=== PATIENT | female | born 1990 | race Caucasian/White ===

== ENCOUNTER 2016-11-05 18:27 | Emergency (ER) | payer SELFPAY ==
[2016-11-05 18:39] VITALS: BP 129/61
== END 2016-11-05 19:16 | disposition left against medical advice (07) ==
LOC: ED 18:27
DX: R00.2 Palpitations (principal); Z53.21 Procedure and treatment not carried out due to patient leaving prior to being seen by health care provider
CPT/HCPCS: 93005

== ENCOUNTER 2017-03-07 17:40 | Emergency (ER) | payer BC ==
[2017-03-07 18:21] VITALS: BP 110/66
--- NOTE | 2017-03-07 19:06 | UC ---
Abdominal Pain Female HPI - HPI Summary HPI Summary: PT HAS HAD ABDOMINAL PAIN AND INTERMITTENT N/V/D FOR YEARS. USED TO TAKE PRILOSEC WHICH HELPED BUT RAN OUT A MONTH AGO. PAIN HAS BEEN CONSTANT FOR THE PAST WEEK. PT IS TEARFUL. WENT TO GI SEVERAL YEARS AGO AND NOTHING WAS FOUND. NO FEVER. - History of Current Complaint Chief Complaint: UCAbdominalPain Stated Complaint: ABDOMINAL PAIN Time Seen by Provider: 03/07/17 18:48 Hx Obtained From: Patient Hx Last Menstrual Period: 02/24/17 Onset/Duration: Gradual Onset, Lasting Weeks, Still Present Timing: Constant Severity Initially: Moderate Severity Currently: Moderate Pain Intensity: 7 Pain Scale Used: 0-10 Numeric Location: Diffuse Radiates: No Character: Burning Aggravating Factor(s): Food Alleviating Factor(s): Nothing Associated Signs and Symptoms: Positive: Nausea, Vomiting, Diarrhea Allergies/Adverse Reactions: Allergies Allergy/AdvReac Type Severity Reaction Status Date / Time No Known Allergies Allergy Verified 03/07/17 18:21 Home Medications: Home Medications Calcium Carbonate CHEW TAB* [Tums*] PRN 03/07/17 [History] PMH/Surg Hx/FS Hx/Imm Hx - Additional Past Medical History Additional PMH: EATING DISORDER - RECOVERED - Surgical History Surgical History: Yes Surgery Procedure, Year, and Place: wisdom teeth - Family History Known Family History: Positive: Hypertension - Social History Alcohol Use: Rare Substance Use Type: Marijuana Substance Use Comment - Amount & Last Used: regularly Smoking Status (MU): Former Smoker Amount Used/How Often: 3/4 ppd Length of Time of Smoking/Using Tobacco: 10 years Have You Smoked in the Last Year: Yes Household Exposure Type: Cigarettes Review of Systems Constitutional: Negative Respiratory: Negative Cardiovascular: Negative Gastrointestinal: Abdominal Pain, Vomiting, Diarrhea, Nausea All Other Systems Reviewed And Are Negative: Yes Physical Exam Triage Information Reviewed: Yes Appearance: Well-Appearing, No Pain Distress, Well-Nourished, Other: - PT TEARFUL Vital Signs: Initial Vital Signs Temp 97.7 F 03/07/17 18:16 Pulse 79 03/07/17 18:16 Resp 16 03/07/17 18:16 BP 110/66 03/07/17 18:16 Pulse Ox 100 03/07/17 18:16 Vital Signs Reviewed: Yes Eyes: Positive: Conjunctiva Clear ENT: Positive: Hearing grossly normal Neck: Positive: Supple Respiratory Exam: Normal Cardiovascular Exam: Normal Abdomen Description: Positive: Soft, Other: - DIFFUSELY TENDER. NO REBOUND OR RIGIDITY. Negative: CVA Tenderness (R), CVA Tenderness (L), Distended, Guarding Bowel Sounds: Positive: Present Musculoskeletal: Positive: No Edema Neurological: Positive: Alert Psychological: Positive: Age Appropriate Behavior Skin: Negative: rashes Re-Evaluation - Re-Evaluation First Eval Re-Evaluation Time: 19:50 - PT FEELS BETTER AFTE GI COCKTAIL AND OMEPRAZOLE Change: Improved Abd Pain Female Course/Dx - Course Course Of Treatment: SX MAY BE DUE TO IBS VS. GASTRITIS VS. REFLUX VS. ANXIETY. REFERRED TO GI FOR FURTHER EVALUATION. PPI DAILY. WATCH DIET. - Differential Dx/Diagnosis Provider Diagnoses: GASTRITIS Discharge - Discharge Plan Condition: Stable Disposition: HOME Prescriptions: Omeprazole 40 mg PO DAILY #30 cap Patient Education Materials: Gastritis (ED), Abdominal Pain (ED) Forms: *Work Release Referrals: Cristhian Turcios, [employer] [Primary Care Provider] - If Needed Additional Instructions: TAKE THE REFLUX MEDICINE IN THE MORNING (IDEALLY AT LEAST 30 MINUTES BEFORE YOU EAT). EAT SLOWLY. STAY UPRIGHT AT LEAST 30 MINUTES AFTER EATING. EAT SMALLER, MORE FREQUENT MEALS OPPOSED TO LARGE INFREQUENT MEALS. AVOID POSSIBLE TRIGGER FOODS - GREASY, SPICY, ACIDIC FOODS. CAFFEINE, ALCOHOL. FOLLOW-UP WITH [facility] Address: [address] [place] [address] CALL THE NUMBER BELOW FOR ASSISTANCE IN ESTABLISHING WITH A PCP An additional resource available to assist in finding the appropriate physician for your health care needs is the [facility] ([facility]). You may contact them by calling [phone].
[2017-03-07] MEDS ORDERED: Al Hydrox/Mg Hydrox/Simet LIQ* 30 ML UDC PO ONE (19:23)
[2017-03-07] MEDS ORDERED: Lidocaine 2% VISCOUS* 15 ML UDC PO ONE (19:23)
[2017-03-07] MEDS ORDERED: Omeprazole CAP* 20 MG PO ONE (19:25)
== END 2017-03-07 19:56 | disposition home or self-care (01) ==
LOC: UCEAST 17:40
DX: K29.70 Gastritis, unspecified, without bleeding (principal); F12.90 Cannabis use, unspecified, uncomplicated; Z87.891 Personal history of nicotine dependence
CPT/HCPCS: 99212; A9270-GY; G0463

== ENCOUNTER 2018-02-13 01:19 | Emergency (ER) | payer BC ==
[2018-02-13] MEDS ORDERED: Ondansetron ODT TAB* 4 MG PO ONE (01:59)
[2018-02-13] MEDS ORDERED: NS 0.9% 1000 ML* 1,000 ML IV ONE (01:59)
[2018-02-13] MEDS ORDERED: Morphine VIAL* 10 MG/ML 1 ML VIAL IV ONE ×2 (01:59→03:10)
--- NOTE | 2018-02-13 02:05 | ED ---
Abdominal Pain/Female <Navin Ochoa - Last Filed: 02/13/18 04:51> - HPI Summary HPI Summary: Complains of RLQ pain, N/V/D, clamminess, increased urinary frequency starting today. Just finished menses, states unusual vaginal discharge with menses. History of intermittent N/V, ovarian cysts, occasional diarrhea. Abdominal pain described as sharp, started as intermittent but has become constant, worse with movement/coughing. Denies cough, sore throat, CP, SOB, vaginal bleeding or pain, pain with urination. Medical history is ovarian cysts, intermittent N/ V, occasional diarrhea. Abdominal/pelvic surgical history is none. 2 prior CTs ab/pel here in past 2 years for right lower quadrant pain negative for appendicitis - History of Current Complaint Hx Obtained From: Patient, Family/Nailhead Puncher Hx Last Menstrual Period: 02/24/17 Pain Intensity: 6 <Humphrey Rockwell - Last Filed: 02/14/18 02:31> - History of Current Complaint Chief Complaint: EDAbdPain Stated Complaint: ABD PAIN Time Seen by Provider: 02/13/18 01:40 Allergies/Adverse Reactions: Allergies Allergy/AdvReac Type Severity Reaction Status Date / Time No Known Allergies Allergy Verified 03/07/17 18:21 PMH/Surg Hx/FS Hx/Imm Hx Endocrine/Hematology History: Denies: Hx Diabetes, Hx Thyroid Disease Cardiovascular History: Denies: Hx Congestive Heart Failure, Hx Hypertension Respiratory History: Reports: Hx Asthma - On meds Denies: Hx Chronic Obstructive Pulmonary Disease (COPD) GI History: Denies: Hx Ulcer History: Denies: Hx Dialysis, Hx Renal Disease Psychiatric History: Reports: Hx Anxiety - Surgical History Surgery Procedure, Year, and Place: wisdom teeth - Immunization History Date of Tetanus Vaccine: UTD Date of Influenza Vaccine: NONE Infectious Disease History: No Infectious Disease History: Denies: Hx Clostridium Difficile, Hx Hepatitis, Hx Human Immunodeficiency Virus (HIV), Hx of Known/Suspected MRSA, Hx Shingles, Hx Tuberculosis, Traveled Outside the [place] in Last 30 Days - Family History Known Family History: Positive: None, Hypertension - Social History Alcohol Use: Rare Substance Use Type: Reports: Marijuana Substance Use Comment - Amount & Last Used: regularly Smoking Status (MU): Former Smoker Amount Used/How Often: 3/4 ppd Length of Time of Smoking/Using Tobacco: 10 years Have You Smoked in the Last Year: Yes <Humphrey Rockwell - Last Filed: 02/14/18 02:31> Review of Systems Positive: Other - clammy Eyes: Negative ENT: Negative Cardiovascular: Negative Respiratory: Negative Positive: Abdominal Pain, Vomiting, Diarrhea, Nausea Positive: frequency Musculoskeletal: Negative Skin: Negative Neurological: Negative Psychological: Normal All Other Systems Reviewed And Are Negative: Yes <Humphrey Rockwell - Last Filed: 02/14/18 02:31> Physical Exam Vital Signs On Initial Exam: Initial Vitals Temp Pulse Resp BP Pulse Ox 36.8 C 89 16 127/77 99 02/13/18 01:22 02/13/18 01:22 02/13/18 01:22 02/13/18 01:22 02/13/18 01:22 <DonNavin - Last Filed: 02/13/18 04:51> - Summary Physical Exam Summary: Tender to palpation along the lower abdomen with right lower quadrant being the most tender. Triage Information Reviewed: Yes Vital Signs On Initial Exam: Initial Vitals Temp Pulse Resp BP Pulse Ox 98.2 F 89 16 127/77 99 02/13/18 01:22 02/13/18 01:22 02/13/18 01:22 02/13/18 01:22 02/13/18 01:22 Vital Signs Reviewed: Yes Appearance: Positive: Well-Appearing Skin: Positive: Warm Head/Face: Positive: Normal Head/Face Inspection Eyes: Positive: Normal Neck: Positive: Supple Respiratory/Lung Sounds: Positive: Clear to Auscultation Cardiovascular: Positive: Normal Abdomen Description: Positive: McBurney's Point Tenderness Pelvic Exam: Positive: External Exam Normal, No Cerv. Motion Tender, Tender Adnexa - rt side tenderness. Negative: No Masses, Active Bleeding, Blood, Cervicitis, Discharge, Lesions, Mass, Tender w/ Cervical Motion, Tender Uterus, Ulcers Musculoskeletal: Positive: Normal Neurological: Positive: Normal Psychiatric: Positive: Normal AVPU Assessment: Alert - [place] Coma Scale Best Eye Response: 4 - Spontaneous Best Motor Response: 6 - Obeys Commands Best Verbal Response: 5 - Oriented Coma Scale Total: 15 <Humphrey Rockwell - Last Filed: 02/14/18 02:31> Diagnostics - Vital Signs Vital Signs Temp Pulse Resp BP Pulse Ox 02/13/18 04:33 52 100/73 96 02/13/18 04:10 16 02/13/18 04:09 58 107/59 99 02/13/18 04:00 52 98 02/13/18 03:10 49 108/61 98 02/13/18 03:00 74 100 02/13/18 02:33 68 104/68 99 02/13/18 02:28 16 02/13/18 01:22 36.8 C 89 16 127/77 99 - Laboratory Lab Results: Lab Results 02/13/18 02/13/18 02/13/18 Range/Units 03:11 03:11 03:11 WBC 8.3 (3.5-10.8) 10^3/ul RBC 4.74 (4.0-5.4) 10^6/ul Hgb 13.7 (12.0-16.0) g/dl Hct 40 (35-47) % MCV 85 (80-97) fL MCH 29 (27-31) pg MCHC 34 (31-36) g/dl RDW 13 (10.5-15) % Plt Count 231 (150-450) 10^3/ul MPV 8.5 (7.4-10.4) um3 Neut % (Auto) 47.6 (38-83) % Lymph % (Auto) 44.7 (25-47) % [place] % (Auto) 6.1 (0-7) % Eos % (Auto) 0.6 (0-6) % Baso % (Auto) 1.0 (0-2) % Absolute Neuts (auto) 3.9 (1.5-7.7) 10^3/ul Absolute Lymphs (auto) 3.7 (1.0-4.8) 10^3/ul Absolute Monos (auto) 0.5 (0-0.8) 10^3/ul Absolute Eos (auto) 0 (0-0.6) 10^3/ul Absolute Basos (auto) 0.1 (0-0.2) 10^3/ul Absolute Nucleated RBC 0 10^3/ul Nucleated RBC % 0.1 Sodium 140 (139-145) mmol/L Potassium 3.3 L (3.5-5.0) mmol/L Chloride 104 (101-111) mmol/L Carbon Dioxide 27 (22-32) mmol/L Anion Gap 9 (2-11) mmol/L BUN 9 (6-24) mg/dL Creatinine 0.69 (0.51-0.95) mg/dL Est GFR ( Amer) 133.3 (>60) Est GFR (Non-Af Amer) 103.7 (>60) BUN/Creatinine Ratio 13.0 (8-20) Glucose 83 (70-100) mg/dL Lactic Acid (0.5-2.0) mmol/L Calcium 9.4 (8.6-10.3) mg/dL Total Bilirubin 0.40 (0.2-1.0) mg/dL AST 11 L (13-39) U/L ALT 8 (7-52) U/L Alkaline Phosphatase 43 (34-104) U/L C-Reactive Protein < 1.00 (< 5.00) mg/L Total Protein 6.5 (6.4-8.9) g/dL Albumin 4.1 (3.2-5.2) g/dL Globulin 2.4 (2-4) g/dL Albumin/Globulin Ratio 1.7 (1-3) Lipase 18 (11.0-82.0) U/L Beta HCG, Quant < 0.60 mIU/mL Urine Color Yellow Urine Appearance Cloudy Urine pH 6.0 (5-9) Ur Specific [place] 1.015 (1.010-1.030) Urine Protein Negative (Negative) Urine Ketones Negative (Negative) Urine Blood 2+ A (Negative) Urine Nitrate Negative (Negative) Urine Bilirubin Negative (Negative) Urine Urobilinogen Negative (Negative) Ur Leukocyte Esterase Trace A (Negative) Urine WBC (Auto) 1+(6-10/hpf) A (Absent) Urine RBC (Auto) 1+(3-5/hpf) A (Absent) Ur Squamous Epith Cells Present A (Absent) Urine Bacteria Absent (Absent) Urine Glucose Negative (Negative) 02/13/18 Range/Units 03:11 WBC (3.5-10.8) 10^3/ul RBC (4.0-5.4) 10^6/ul Hgb (12.0-16.0) g/dl Hct (35-47) % MCV (80-97) fL MCH (27-31) pg MCHC (31-36) g/dl RDW (10.5-15) % Plt Count (150-450) 10^3/ul MPV (7.4-10.4) um3 Neut % (Auto) (38-83) % Lymph % (Auto) (25-47) % [place] % (Auto) (0-7) % Eos % (Auto) (0-6) % Baso % (Auto) (0-2) % Absolute Neuts (auto) (1.5-7.7) 10^3/ul Absolute Lymphs (auto) (1.0-4.8) 10^3/ul Absolute Monos (auto) (0-0.8) 10^3/ul Absolute Eos (auto) (0-0.6) 10^3/ul Absolute Basos (auto) (0-0.2) 10^3/ul Absolute Nucleated RBC 10^3/ul Nucleated RBC % Sodium (139-145) mmol/L Potassium (3.5-5.0) mmol/L Chloride (101-111) mmol/L Carbon Dioxide (22-32) mmol/L Anion Gap (2-11) mmol/L BUN (6-24) mg/dL Creatinine (0.51-0.95) mg/dL Est GFR ( Amer) (>60) Est GFR (Non-Af Amer) (>60) BUN/Creatinine Ratio (8-20) Glucose (70-100) mg/dL Lactic Acid 1.1 (0.5-2.0) mmol/L Calcium (8.6-10.3) mg/dL Total Bilirubin (0.2-1.0) mg/dL AST (13-39) U/L ALT (7-52) U/L Alkaline Phosphatase (34-104) U/L C-Reactive Protein (< 5.00) mg/L Total Protein (6.4-8.9) g/dL Albumin (3.2-5.2) g/dL Globulin (2-4) g/dL Albumin/Globulin Ratio (1-3) Lipase (11.0-82.0) U/L Beta HCG, Quant mIU/mL Urine Color Urine Appearance Urine pH (5-9) Ur Specific [place] (1.010-1.030) Urine Protein (Negative) Urine Ketones (Negative) Urine Blood (Negative) Urine Nitrate (Negative) Urine Bilirubin (Negative) Urine Urobilinogen (Negative) Ur Leukocyte Esterase (Negative) Urine WBC (Auto) (Absent) Urine RBC (Auto) (Absent) Ur Squamous Epith Cells (Absent) Urine Bacteria (Absent) Urine Glucose (Negative) Result Diagrams: 02/13/18 03:11 02/13/18 03:11 Lab Statement: Any lab studies that have been ordered have been reviewed, and results considered in the medical decision making process. <Navin Ochoa - Last Filed: 02/13/18 04:51> - Vital Signs Vital Signs Temp Pulse Resp BP Pulse Ox 02/13/18 01:22 98.2 F 89 16 127/77 99 - Laboratory Result Diagrams: 02/13/18 03:11 02/13/18 03:11 Lab Statement: Any lab studies that have been ordered have been reviewed, and results considered in the medical decision making process. - CT ab/pel CT Interpretation: Positive (See Comments) - right ovarian cyst. Appendix negative CT Interpretation Completed By: Radiologist <Humphrey Rockwell - Last Filed: 02/14/18 02:31> Abdominal Pain Fem Course/Dx <Navin Ochoa - Last Filed: 02/13/18 04:51> - Course Course Of Treatment: Complains of RLQ pain, N/V/D, clamminess, increased urinary frequency starting today. Just finished menses, states unusual vaginal discharge with menses. History of intermittent N/V, ovarian cysts, occasional diarrhea. Abdominal pain described as sharp, started as intermittent but has become constant, worse with movement/coughing. Denies cough, sore throat, CP, SOB, vaginal bleeding or pain, pain with urination. Medical history is ovarian cysts, intermittent N/V, occasional diarrhea. Abdominal/pelvic surgical history is none. 2 prior CTs ab/pel here in past 2 years for right lower quadrant pain negative for appendicitis. Tender to palpation along the lower abdomen with right lower quadrant being the most tender. Pelvic exam remarkable only for right adnexa tenderness. No CMT. Labs unremarkable. Imaging remarkable for ovarian cyst. Vital signs within normal limits. Rx for naproxen <Humphrey Rockwell - Last Filed: 02/14/18 02:31> - Diagnoses Provider Diagnoses: Ovarian cyst Discharge <Navin Ochoa - Last Filed: 02/13/18 04:51> - Sign-Out/Discharge Documenting (check all that apply): Sign-Out Patient Signing out patient TO: Navin Ochoa - 03:15 - Billing Disposition and Condition Condition: GOOD Disposition: HOME <Humphrey Rockwell - Last Filed: 02/14/18 02:31> - Discharge Plan Condition: Good Disposition: HOME Prescriptions: Naproxen [Naprosyn 500 mg tab] 500 mg PO BID PRN #15 tablet PRN Reason: Pain Patient Education Materials: Ovarian Cyst (ED) Referrals: Cristhian Turcios [employer] [Primary Care Provider] -
[2018-02-13] MEDS ORDERED: Morphine VIAL* 4 MG/ML VIAL (1 ml vial) IV ONE ×3 (02:25→04:02)
[2018-02-13] MEDS ORDERED: Azithromycin TAB* 250 MG PO ONE (03:08)
[2018-02-13] MEDS ORDERED: cefTRIAXone VIAL(*) 250 MG VIAL IM ONE (03:08)
[2018-02-13] MEDS ORDERED: Lidocaine 1%* 5 ML VIAL ONE (03:15)
[2018-02-13 03:21] LABS: ABS Basophils 0.1 10^3/ul (0-0.2); ABS Eosinophils 0 10^3/ul (0-0.6); ABS Lymphocytes 3.7 10^3/ul (1.0-4.8); ABS Monocytes 0.5 10^3/ul (0-0.8); ABS Neutrophils 3.9 10^3/ul (1.5-7.7); ABS Nucleated RBC 0 10^3/ul; Eosinophil % 0.6 % (0-6); Hematocrit 40 % (35-47); Hemoglobin 13.7 g/dl (12.0-16.0); Lymphocyte % 44.7 % (25-47); Mean Corpuscular HGB Conc 34 g/dl (31-36); Mean Corpuscular Hemoglobin 29 pg (27-31); Mean Corpuscular Volume 85 fL (80-97); Mean Platelet Volume 8.5 um3 (7.4-10.4); Nucleated Red Blood Cells % 0.1; Platelet Count 231 10^3/ul (150-450); Red Blood Count 4.74 10^6/ul (4.0-5.4); Red Cell Distribution Width 13 % (10.5-15); White Blood Count 8.3 10^3/ul (3.5-10.8)
[2018-02-13 03:26] LABS: Urine Appearance Cloudy; Urine Blood 2+ (Negative); Urine Color Yellow; Urine Ketones Negative (Negative); Urine Protein Negative (Negative); Urine Specific Gravity 1.015 (1.010-1.030); Urine Urobilinogen Negative (Negative)
[2018-02-13 03:39] LABS: EGFR Non-African American 103.7 (>60)
[2018-02-13] MEDS ORDERED: Iohexol 300* (CONTRAST) 10 ML SDV IV ONE (04:39)
[2018-02-13 06:59] VITALS: BP 120/65
--- NOTE | 2018-02-13 10:27 | RAD ---
INDICATION: RIGHT lower quadrant pain, nausea, vomiting. COMPARISON: May 08, 2016 TECHNIQUE: Multidetector CT images were obtained from the lung bases to the ischial tuberosities with 81 mL Omnipaque 300 IV and oral contrast. Multiplanar reformation. REPORT: Minimal dependent atelectasis at the lung bases. Relative hypodensity of the liver likely reflects early stage of contrast enhancement. Suggestion of variant Neva lobe accounting for mild cephalocaudal prominence of the liver without change. No suspicious abnormality of the liver. No CT abnormality of the gallbladder, pancreas, spleen. Small splenule at the splenic hilum. Negative for CT abnormality of the upper GI, small bowel, medially extending appendix, or colon. Trace physiologic range volume of free fluid in the cul-de-sac. Negative for free air or hernias. Normal adrenal glands. Unremarkable kidneys with symmetric nephrograms and pyelograms. Unremarkable nondilated ureters and urinary bladder. Unremarkable anteverted uterus and LEFT adnexal region. 6.9 x 5.0 x 4.7 cm well-circumscribed RIGHT ovarian or paraovarian lesion measures mildly increased in density relative to water and demonstrates interval increase in size compared to thousand 16 exam. Negative for lymphadenopathy. Physiologic distention of the IVC. Negative for suspicious osseous lesions. Unchanged 17 degrees Barrientos angle dextroscoliosis measured between T12 and L5. IMPRESSION: 1. Normal appendix documented. 2. Interval enlargement of 6.9 x 5.0 x 4.7 cm denser than water lesion of the RIGHT ovary or paraovarian region compared with the May 08, 2016 CT. Correlate with clinical assessment and consider pelvic ultrasound for further evaluation.
== END 2018-02-13 07:02 | disposition home or self-care (01) ==
LOC: ED 01:19
DX: N83.201 Unspecified ovarian cyst, right side (principal); Z87.891 Personal history of nicotine dependence
CPT/HCPCS: 36415; 74177; 80053; 81003; 81015; 83605; 83690; 84702; 85025; 86140; 87086; 87480; 87491; 87510; 87591; 87661; 96361; 96372; 96374; 96376; 99284; A9270-GY; J0696; J2270; Q9967

== ENCOUNTER 2018-09-22 14:21 | Emergency (ER) | payer BC, MEDICAID ==
[2018-09-22] MEDS ORDERED: Ketorolac INJ* 30 MG/ML 1 ML VIAL IV PUSH ONE ×2 (14:52→17:16)
[2018-09-22 16:31] LABS: ABS Basophils 0.1 10^3/ul (0-0.2); ABS Eosinophils 0 10^3/ul (0-0.6); ABS Lymphocytes 2.4 10^3/ul (1.0-4.8); ABS Monocytes 0.4 10^3/ul (0-0.8); ABS Neutrophils 4.5 10^3/ul (1.5-7.7); ABS Nucleated RBC 0 10^3/ul; Eosinophil % 0.3 %; Hematocrit 43 % (35-47); Hemoglobin 14.8 g/dl (12.0-16.0); Lymphocyte % 32.3 %; Mean Corpuscular HGB Conc 34 g/dl (31-36); Mean Corpuscular Hemoglobin 29 pg (27-31); Mean Corpuscular Volume 86 fL (80-97); Mean Platelet Volume 7.8 fL (7.4-10.4); Nucleated Red Blood Cells % 0; Platelet Count 282 10^3/ul (150-450); Red Blood Count 5.03 10^6/ul (4.00-5.40); Red Cell Distribution Width 13 % (10.5-15); White Blood Count 7.4 10^3/ul (3.5-10.8)
[2018-09-22 17:06] LABS: ALT 8 U/L (7-52); AST 12 U/L (13-39); Albumin 4.5 g/dL (3.2-5.2); Alkaline Phosphatase 42 U/L (34-104); Anion Gap 6 mmol/L (2-11); BUN/Creatinine Ratio 13.9 (8-20); Blood Urea Nitrogen 10 mg/dL (6-24); C Reactive Protein 1.58 mg/L (<8.01); CO2 Carbon Dioxide 28 mmol/L (22-32); Calcium 9.7 mg/dL (8.6-10.3); Chloride 105 mmol/L (101-111); EGFR Non-African American 97.9 (>60); Globulin 2.2 g/dL (2-4); Glucose 99 mg/dL (70-100); Potassium 3.9 mmol/L (3.5-5.0); Sodium 139 mmol/L (135-145); Total Protein 6.7 g/dL (6.4-8.9)
[2018-09-22 17:11] LABS: HCG Pregnancy < 0.60 mIU/mL
--- NOTE | 2018-09-22 17:15 | ED ---
Abdominal Pain/Female - HPI Summary HPI Summary: A 28 y/o female presents to [facility] with a chief complaint of constant stabbing constant LLQ abdominal pain since 09/21/18. 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 She rates her pain as an 8/10. She has a Hx of ovarian cysts. She admits to some dysuria, fevers, shaking and chills. However, she did not measure her fever with a thermometer. She reports not being sexually active in months. [facility]. She denies a Hx of kidney stones. She denies smoking or EtOH use. She denies an abdominal SHx. - History of Current Complaint Chief Complaint: EDAbdPain Stated Complaint: ABD PAIN Time Seen by Provider: 09/22/18 17:06 Hx Obtained From: Patient Hx Last Menstrual Period: 02/24/17 Onset/Duration: Gradual Onset, Lasting Weeks, Still Present Timing: Hours Severity Initially: Severe Severity Currently: Severe Pain Intensity: 8 Pain Scale Used: 0-10 Numeric Location: Discrete At: LLQ Radiates: No Character: Other: - stabbing Aggravating Factor(s): Nothing Alleviating Factor(s): Nothing Associated Signs and Symptoms: Positive: Fever, Urinary Symptoms - dysuria. Negative: Back Pain Allergies/Adverse Reactions: Allergies Allergy/AdvReac Type Severity Reaction Status Date / Time No Known Allergies Allergy Verified 03/07/17 18:21 PMH/Surg Hx/FS Hx/Imm Hx Endocrine/Hematology History: Denies: Hx Diabetes, Hx Thyroid Disease Cardiovascular History: Denies: Hx Congestive Heart Failure, Hx Hypertension Respiratory History: Reports: Hx Asthma - On meds Denies: Hx Chronic Obstructive Pulmonary Disease (COPD) GI History: Denies: Hx Ulcer History: Denies: Hx Dialysis, Hx Kidney Stones, Hx Renal Disease Psychiatric History: Reports: Hx Anxiety - Surgical History Surgery Procedure, Year, and Place: wisdom teeth - Immunization History Date of Tetanus Vaccine: UTD Date of Influenza Vaccine: NONE Infectious Disease History: No Infectious Disease History: Denies: Hx Clostridium Difficile, Hx Hepatitis, Hx Human Immunodeficiency Virus (HIV), Hx of Known/Suspected MRSA, Hx Shingles, Hx Tuberculosis, Traveled Outside the [place] in Last 30 Days - Family History Known Family History: Positive: Hypertension - Social History Alcohol Use: None Hx Substance Use: Yes Substance Use Type: Reports: Marijuana Substance Use Comment - Amount & Last Used: regularly Smoking Status (MU): Former Smoker Amount Used/How Often: 3/4 ppd Length of Time of Smoking/Using Tobacco: 10 years Have You Smoked in the Last Year: Yes Review of Systems Positive: Fever, Chills, Other - Positive: shaking Positive: Abdominal Pain Positive: dysuria All Other Systems Reviewed And Are Negative: Yes Physical Exam - Summary Physical Exam Summary: Appearance: Well appearing, no pain distress Skin: warm, dry, reflects adequate perfusion Head/face: normal Eyes: EOMI, MELISSA ENT: mucous membranes moist Neck: supple, non-tender Respiratory: CTA, breath sounds present Cardiovascular: RRR, pulses symmetrical Abdomen: No CVA tenderness, mild LLQ tenderness, soft Bowel Sounds: present Musculoskeletal: normal, strength/ROM intact Neuro: normal, sensory motor intact, A&Ox3 Pelvic exam: Yellow discharge at the cervical's. Positive cervical motion tenderness. Moderate left adnexal tenderness without mass Triage Information Reviewed: Yes Vital Signs On Initial Exam: Initial Vitals Temp Pulse Resp BP Pulse Ox 100.0 F 89 22 127/65 100 09/22/18 14:48 09/22/18 14:48 09/22/18 14:48 09/22/18 14:48 09/22/18 14:48 Vital Signs Reviewed: Yes Diagnostics - Vital Signs Vital Signs Temp Pulse Resp BP Pulse Ox 09/22/18 14:48 100.0 F 89 22 127/65 100 - Laboratory Lab Results: Lab Results 09/22/18 09/22/18 09/22/18 Range/Units 15:32 15:32 15:32 WBC 7.4 (3.5-10.8) 10^3/ul RBC 5.03 (4.00-5.40) 10^6/ul Hgb 14.8 (12.0-16.0) g/dl Hct 43 (35-47) % MCV 86 (80-97) fL MCH 29 (27-31) pg MCHC 34 (31-36) g/dl RDW 13 (10.5-15) % Plt Count 282 (150-450) 10^3/ul MPV 7.8 (7.4-10.4) fL Neut % (Auto) 61.0 % Lymph % (Auto) 32.3 % [place] % (Auto) 5.5 % Eos % (Auto) 0.3 % Baso % (Auto) 0.9 % Absolute Neuts (auto) 4.5 (1.5-7.7) 10^3/ul Absolute Lymphs (auto) 2.4 (1.0-4.8) 10^3/ul Absolute Monos (auto) 0.4 (0-0.8) 10^3/ul Absolute Eos (auto) 0 (0-0.6) 10^3/ul Absolute Basos (auto) 0.1 (0-0.2) 10^3/ul Absolute Nucleated RBC 0 10^3/ul Nucleated RBC % 0 Sodium 139 (135-145) mmol/L Potassium 3.9 (3.5-5.0) mmol/L Chloride 105 (101-111) mmol/L Carbon Dioxide 28 (22-32) mmol/L Anion Gap 6 (2-11) mmol/L BUN 10 (6-24) mg/dL Creatinine 0.72 (0.51-0.95) mg/dL Est GFR ( Amer) 118.5 (>60) Est GFR (Non-Af Amer) 97.9 (>60) BUN/Creatinine Ratio 13.9 (8-20) Glucose 99 (70-100) mg/dL Lactic Acid 0.7 (0.5-2.0) mmol/L Calcium 9.7 (8.6-10.3) mg/dL Total Bilirubin 0.40 (0.2-1.0) mg/dL AST 12 L (13-39) U/L ALT 8 (7-52) U/L Alkaline Phosphatase 42 (34-104) U/L C-Reactive Protein 1.58 (<8.01) mg/L Total Protein 6.7 (6.4-8.9) g/dL Albumin 4.5 (3.2-5.2) g/dL Globulin 2.2 (2-4) g/dL Albumin/Globulin Ratio 2.0 (1-3) Lipase 18 (11.0-82.0) U/L Beta HCG, Quant Pending Result Diagrams: 09/22/18 15:32 09/22/18 15:32 Lab Statement: Any lab studies that have been ordered have been reviewed, and results considered in the medical decision making process. - CT abdomen/pelvis CT Interpretation Completed By: Radiologist Summary of CT Findings: No obstructive uropathy. Previously seen large right ovarian cyst is resolved. Currently there is a. trace amount of free fluid which could be from a recently ruptured small cyst. ED provider has reviewed this imaging report. - Ultrasound No standard instances Ultrasound Interpretation Completed By: Radiologist Summary of Ultrasound Findings: TRANSVAGINAL ULTRASOUND IMPRESSION: SMALL AMOUNT OF FREE INTRAPERITONEAL FLUID IN THE CUL-DE-SAC, OTHERWISE. UNREMARKABLE STUDY. Re-Evaluation - Re-Evaluation First Eval Re-Evaluation Time: 18:35 Change: Unchanged Comment: Discussed results. Yellow discharge around cervical os. Cervical motion tenderness. Patient is crying. Abdominal Pain Fem Course/Dx - Course Course Of Treatment: Nurse's notes reviewed. Ultrasound, CT scan negative for pathology. Urine noninfected. Negative CBC. Patient is febrile with cervical motion tenderness and small amount of discharge. Treated his as PID. Pain treated here. Discussed with SERVICES MANAGER who wishes to treat outpatient. They will follow her up in the office on Thursday. Discharged with pain control and antibiotics after Rocephin, doxycycline IV here. - Diagnoses Differential Diagnosis: Positive: Diverticulitis, Ectopic , Irritable Bowel Syndrome, Ovarian Cyst, Pancreatitis, Pelvic Inflammatory Disease, Renal Colic, Urinary Tract Infection Provider Diagnoses: Pelvic inflammatory disease (PID) - Provider Notifications Discussed Care Of Patient With: Errol Watson MD Time Discussed With Above Provider: 19:00 Instructed by Provider To: Other - Reccomends discharge Discharge - Sign-Out/Discharge Documenting (check all that apply): Patient Departure - DC - Discharge Plan Condition: Improved Disposition: HOME Prescriptions: DOXYcycline CAP(*) [DOXYcycline 100MG CAP(*)] 100 mg PO BID #28 cap Famotidine TAB* [Pepcid 20 MG TAB*] 20 mg PO BID PRN #20 tab PRN Reason: stomach discomfort Hydrocodone/Acetaminophen [Tigrett 5-325 Tablet] 1 each PO TID PRN #10 tablet MDD 3 PRN Reason: more severe pain Patient Education Materials: Pelvic Inflammatory Disease (ED) Forms: *Work Release Referrals: Brandee Myers MD [Primary Care Provider] - Derick Watson MD [Medical Doctor] - Additional Instructions: Call SERVICES MANAGER first thing in the morning to be seen by them on Thursday. Return with high fever, increased pain, vomiting, worse or other concerns. Abstain from intercourse. - Billing Disposition and Condition Condition: IMPROVED Disposition: Home - Attestation Statements Document Initiated by Adela: Yes Documenting Scribe: Shaquille Collazo Provider For Whom Adela is Documenting (Include Credential): Adair Haas MD Scribe Attestation: I, Shaquille Collazo, scribed for Adair Haas MD on 09/22/18 at 1911. Scribe Documentation Reviewed: Yes Provider Attestation: The documentation as recorded by the Shaquille martinez accurately reflects the service I personally performed and the decisions made by me, Adair Haas MD Status of Scribe Document: Viewed
[2018-09-22] MEDS ORDERED: NS 0.9% 1000 ML* 1,000 ML IV ONE (17:16)
[2018-09-22 17:37] LABS: Urine Appearance Cloudy; Urine Bacteria 1+ (Absent); Urine Bilirubin Negative (Negative); Urine Blood Negative (Negative); Urine Color Yellow; Urine Glucose Negative (Negative); Urine Ketones Negative (Negative); Urine Nitrite Negative (Negative); Urine Protein Negative (Negative); Urine Red Blood Cell Absent (Absent); Urine Specific Gravity 1.013 (1.010-1.030); Urine Urobilinogen Negative (Negative); Urine White Blood Cell Trace(0-5/hpf) (Absent)
[2018-09-22] MEDS ORDERED: DOXYcycline IV* 100 MG in NS 0.9% 250 ML* 250 ML IVPB ONE (18:44)
[2018-09-22] MEDS ORDERED: ceFOXitin(*) 1 GM in NS 0.9% 50 ML* 50 ML IVPB ONE (18:45)
[2018-09-22] MEDS ORDERED: Morphine VIAL* 4 MG/ML VIAL (1 ml vial) IV ONE (18:45)
[2018-09-22] MEDS ORDERED: cefTRIAXone(*) 2 GM in NS 0.9% 100 ML* 100 ML IVPB ONE (19:07)
[2018-09-22 21:01] VITALS: BP 110/84
== END 2018-09-22 20:59 | disposition home or self-care (01) ==
LOC: ED 14:21
DX: N73.9 Female pelvic inflammatory disease, unspecified (principal); J45.909 Unspecified asthma, uncomplicated; F41.9 Anxiety disorder, unspecified; Z87.891 Personal history of nicotine dependence
CPT/HCPCS: 36415; 74176; 76830; 80053; 81003; 81015; 83605; 83690; 84702; 85025; 86140; 87086; 87491; 87591; 96361; 96374; 96375; 99282; J0694; J0696; J1885; J2270

== ENCOUNTER 2018-09-29 13:50 | Emergency (ER) | payer MEDICAID ==
--- OUTSIDE RECORDS SUMMARY | 2018-09-29 13:54 | XMS REPORT | Continuity of Care Document ---
:1990 Author Organization [facility] Address [address] [place], [place] [id number] Phone Care Team Providers Name Role Phone Janice Ward NP Unavailable Unavailable Allergies, Adverse Reactions, Alerts Substance Reaction Status No Known Allergies Active Medications Medication Instructions Dosage Effective Dates Status Comments (start - stop) Tri-VyLibra (28) 1 Tab PO Daily - Active 0.18 mg(7)/0.215 mg(7)/0.25 mg(7)-35 mcg tablet Mirena 20 mcg/24 hr Insert IU with - No Longer (5 years) paracervical block Active intrauterine device Problems Condition Effective Dates (start - Clinical Status Comments stop) Human immunodeficiency virus [HIV] - counseling Encounter for initial prescription of contraceptive pills Encntr screen for infections w sexl mode of transmiss Pelvic and perineal pain Encounter for removal of intrauterine contraceptive device Encounter for initial prescription of contraceptive pills IUC, Surveillance STI Screening Anemia, Screening IUC, Surveillance Yeast-vulvovaginal Anemia, Screening IUC 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, Routine WWE STI Screening Family Planning Counseling STI Screening BCM Other, Surveillance LABORATORY EXAM NOS Cyst of ovary - Active Posttraumatic stress disorder - Active Procedures Procedure Date PREVENTIVE COUNSELING, Under 8 Minutes WET SMEAR ASSAY OF BODY FLUID-PH OFFICE/OUTPATIENT VISIT, NEW BLOOD PRESSURE Height/Weight OTHER Medical Services TRI VYLIBRA Contraceptive pills for bc CHYLMD DNA, AMP PROBE N.GONORRHOEAE, DNA, AMP PROB Results Test Name Date and Time Measure Units Reference Range Abnormal Flag Status Comments Panel Description: C trach DNA XXX Ql PCR Final Swab CT - Negative N Final Performed Vaginal 00:00:00 by:
&emsp;&ensp;CDD ([id number])

Panel Description: Amplified GC - Vaginal Final Swab GC - Negative N Final : Vaginal 00:00:00 No

Performed by:
&emsp;&ensp;CDD ([id number])

Panel Description: Wet Mount Final Wet Mount 16:36:00 NegativeHyphae/Kat: noBudding Final yeast: noTrich: noClue cells: noWBCs: noAmine/Whiff test: negativepH: 4.0 Advance Directives Directive Yes / No Effective Date File Name No information Encounters Encounter Practice Location Reason(s) Diagnoses Date Provider Providers Description For Visit Copied on Encounter OFFICE/OUTPA [facility] Referring TIENT VISIT, [facility] [place] Control immunodeficiency Janice. 620 Provider: MIGUEL Keita (chief virus [HIV] [address], Janice Finger complaint) counselingEncoun [place], [place], Katerina Shukla, [place] [id number], [place]. [address] prescription of tel:[phone], [place], [place], contraceptive [address] [place], [place], [place], [address]. [id number], screen for tel:[phone] [place] infections w [id number] tel:[phone] sexl mode of [id number] transmissPelvic and perineal pain [facility] Encounter for [facility]. [facility] [place] removal of [address], [place], [place], [address]. Marco A Borges deviceEncounter tel:[phone] [address], [place], prescription of [place], contraceptive [id number], pills [place] tel:[phone] [facility] IUC, Dec-0 [facility] [place] SurveillanceSTI Annia. [address] Scre[address], [place], [place], [place], [address] [address] tel:[phone] St, [place], [address] [place], [id number], [place] tel:[phone] [facility] Anemia, Aug- [facility] [place] ScreeningIUC, [place]. [address] SurveillanceYeas [address], [place] t-vulvovaginal [place], [place], [place], [address] [address]. [address] tel:[phone] St, [place], [address] [place], [id number], [place] tel:[phone] [facility] Anemia, Jul- [facility] [place] ScreeningIUC 0 Shoa[place]. [address] Insert[address], [place], [place], [place], [address] [address]. 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 [address] [facility] ScreeningFamily [address], [place] Planning [place], [place], [place], [facility] Counseling [address]. [address] tel:[phone] St, [place], [address] [place], [id number], [place] tel:[phone] [facility] Jun- [facility] [place] 5[address]201 [place]. [address], [place], [place], [place], [address] [address]. [address] tel:[phone] St, [place], [address] [place], [id number], [place] tel:[phone] [facility] STI ScreeningBCM Jun-0 [facility] [place] Other, [place]. [address] Surveillance [address], [place], [place], [place], [address]. [address] tel:[phone] , [place], [address] [place], [id number], [place] tel:[phone] [facility] [place] NOS 1-201 [place]. [address], [place], [place], [place], [address]. [address] tel:[phone] , [place], [address] [place], [id number], tel:[phone] Family History Family Member Diagnosis Age At Onset Father No history of Stroke Sister No history of Myocardial infarction Sister No history of Stroke Mother No history of Myocardial infarction Brother No history of Myocardial infarction Father No history of Myocardial infarction Brother No history of Stroke Mother No history of Stroke Immunizations Vaccine Date Status Comments Hep A (adult) administered Note: PER HEALTH HX ; Source: Source Unspecified Hep B, adult, 3 dose administered Note: PER HEALTH HX ; Source: Source Unspecified HPV (quadrivalent) administered Note: PER HEALTH HX ; Source: Source Unspecified measles, mumps and rubella administered Note: PER HEALTH HX ; Source: virus vaccine Source Unspecified Payers Payer name Insurance type Covered alliance party ID Authorization(s) FPBP PRESUMPTIVE ELIGIBILITY [id number] Social History Type Description Quantity Date Captured Comments Alcohol Use Details Unknown Caffeine Use Details Unknown Tobacco Use Status Ex-cigarette smoker Smoking Status Former smoker Smoking Tobacco Use Cigarette: No Details Available Cigarette: 0.5 Packs per day Details Sex Female Vital Signs Date / Height Weight BMI Pulse Blood Temperature Respiratory Body Head BMI Pulse Inhaled Time: Rate Pressure Rate Surface Circumference percentile Ox Ox Area 63.00 140.00 24.8 in lbs 0 mm[Hg] 3:56 kg/m PM eter (2) Chief Complaint And Reason For Visit Most recent encounter only, dated '09/08/2018 15:50'. Control ( chief complaint) Reason For Referral Reason For Referral No information Plan Of Treatment Date Type Action Status Goal Tobacco cessation counseling completed Appointment TAMICA JOHNSON CANCELLED History Of Present Illness Encounter Date Complaint History Of Present Illness No information Functional Status Date Functional Assessment No information Medications Administered Medication Instructions Dosage Effective Dates (start - stop) Status Comments No information Instructions Date Instruction Additional Information No information Assessments Type Assessment Date assessment Human immunodeficiency virus [HIV] counseling assessment Encounter for initial prescription of contraceptive pills 2017 assessment Encntr screen for infections w sexl mode of transmiss assessment Pelvic and perineal pain Goals Health Concern Goal Type Priority Status Date No information Medical Equipment Description Device [place] Device Identifier Effective Dates (start - stop ) Status No information Mental Status Date Cognitive Assessment Normal Orientation Health Concerns Observation Date No information Concern Status Date No information
[2018-09-29 14:02] VITALS: BP 115/59
--- NOTE | 2018-09-29 14:16 | UC ---
Abdominal Pain Female HPI - HPI Summary HPI Summary: 28 y/o female presents to the urgent care c/o pelvic pain since 09/22/2018. Pt w / PMHX of PCOS. Pt reports she was seen at [facility] on 09/22/2018 and Dx with PID and Rx Doxyxycline PO. Pt was told she an ovarian cyst burst since transvaginal US was positive for free intraperitoneal fluid in the culd-de-Sac. Pt has been taken ABX. She just got her menstrual cycle 09/26/2018, but she is unsure if it is her period, since LMP: 08/26/2019. She has mild nausea and b/l pelvic pain today. Pain is 6/10. Pt denies fever, vaginal discharge, Hx of STD's , BAY, urinary symptoms, flank pain, SOB, chest pain, abdominal pain, V/D. - History of Current Complaint Chief Complaint: UCGU Stated Complaint: PERSONAL Time Seen by Provider: 09/29/18 14:03 Hx Obtained From: Patient Hx Last Menstrual Period: 09/26/18 ?: No Onset/Duration: Gradual Onset, Lasting Weeks - 1 week, Still Present Timing: Constant Severity Initially: Moderate Severity Currently: Moderate Pain Intensity: 6 Pain Scale Used: 0-10 Numeric Location: Suprapubic Radiates: No Character: Colicy Aggravating Factor(s): Other: - her period Alleviating Factor(s): Medications Associated Signs and Symptoms: Positive: Vaginal Bleeding, Nausea. Negative: Diaphoresis, Fever, Cough, Chest Pain, Dizzy, Back Pain, Constipation, Urinary Symptoms, Decreased Appetite, Vaginal Discharge, Vomiting, Diarrhea - Risk Factors Ectopic Risk Factor: Negative Ovarian Torsion Risk Factor: Negative Allergies/Adverse Reactions: Allergies Allergy/AdvReac Type Severity Reaction Status Date / Time No Known Allergies Allergy Verified 09/29/18 14:02 PMH/Surg Hx/FS Hx/Imm Hx Previously Healthy: Yes Other Endocrine History: PCOS - Surgical History Surgical History: Yes Surgery Procedure, Year, and Place: wisdom teeth - Family History Known Family History: Positive: Hypertension Family History: breast cancer, lung cancer - Social History Occupation: Employed Full-time Lives: With Family Alcohol Use: None Substance Use Type: Marijuana Substance Use Comment - Amount & Last Used: regularly Smoking Status (MU): Former Smoker Amount Used/How Often: 3/4 ppd Length of Time of Smoking/Using Tobacco: 10 years Have You Smoked in the Last Year: Yes Household Exposure Type: Cigarettes Review of Systems All Other Systems Reviewed And Are Negative: Yes Constitutional: Positive: Negative Skin: Positive: Negative Eyes: Positive: Negative ENT: Positive: Negative Respiratory: Positive: Negative Cardiovascular: Positive: Negative Gastrointestinal: Positive: Nausea Genitourinary: Positive: Other - pelvic pain w/ vaginal bleeding,possible menstrual cycle. Negative: Dysuria, Hematuria, Frequency, Vaginal/Penile Discharge Motor: Positive: Negative Neurovascular: Positive: Negative Musculoskeletal: Positive: Negative Neurological: Positive: Negative Psychological: Positive: Negative Is Patient Immunocompromised?: No Physical Exam - Summary Physical Exam Summary: Vital signs: reviewed General: well developed, well nourished female sitting in the examining table w/ o any acute pain distress. Head: Normocephalic, no lesions. Eyes: PERRLA, EOM's full, conjunctiva clear, fundi grossly normal. Ears: EAC's clear, TM's normal. Nose: Mucosa normal, no obstruction. Throat: Clear, no exudates, no lesions. Neck: Supple, no masses, no thyromegaly, no bruits. Chest: Lungs clear, no rales, no rhonchi, no wheezes. Heart: RR, no murmurs, no rubs, no gallops. Abdomen: Soft, no tenderness, no masses, BS normal. Pelvic: I was trip follower by Nurse Claudia whitfield. External genitalia within normal limits. There is no lesions there is no masses noted. Speculum exam: The vaginal waters are within normal limits w/ normal menstrual cycle, no the lesions or rashes. The cervix is closed with some erythema and cervical changes around 9 o'clock, no masses. There is mild RT side CMT's, and no adnexal masses. Rectal: No lesions, no hemorrhoids, Back: Normal curvature, no tenderness. Extremities: FROM, no deformities, no edema, no erythema. Neuro: Physiological, no localizing findings. Skin: Normal, no rashes, no lesions noted. Triage Information Reviewed: Yes Vital Signs: Initial Vital Signs Temp 98.0 F 09/29/18 13:54 Pulse 65 09/29/18 13:54 Resp 18 09/29/18 13:54 BP 115/59 09/29/18 13:54 Pulse Ox 97 09/29/18 13:54 Abd Pain Female Course/Dx - Course Course Of Treatment: 28 y/o female presents to the urgent care c/o pelvic pain since 09/22/2018. Pt w/ PMHX of PCOS Pt reports she was seen at [facility] on 2018 and Dx with PID and Rx Doxyxycline PO. Pt was told she an ovarian cyst burst since transvaginal US was positive for free intraperitoneal fluid in the culd-de-Sac. Pt has been taken ABX. She just got her menstrual cycle 09/26/2018, but she is unsure if it is her period, since LMP: 08/26/2019. She has mild nausea and b/l pelvic pain today. Pain is 6/10. Pt denies fever, vaginal discharge, Hx of STD's, BAY, urinary symptoms, flank pain, SOB, chest pain, abdominal pain, V/D. Hx obtained. PE: WNL. The vaginal waters are within normal limits w/ normal menstrual cycle, no the lesions or rashes. The cervix is closed with some erythema and cervical changes around 9 o'clock, no masses. There is mild RT side CMT, and no adnexal masses on examination. Pt w/ recent 7cm ovarian cyst rupture on 09/22/2018 w/ her menstrual cycle which has probably exacerbated her pelvic pain. Pt given a referral w/ SHIPPING INSPECT[facility] Dr Giron for a PAP and further evaluation on her symptoms. Pt Rx [place] PO and Zofran PO to alleviate symptoms. Advised to continue taking Doxyxycline PO. D/C instructions explained. Pt understood and agreed w/ plan of care and left the clinic hemodynamically stable A&OX3. - Differential Dx/Diagnosis Differential Diagnosis: Ovarian Cyst, Pelvic Inflammatory Disease, Urinary Tract Infection Provider Diagnosis: Pelvic pain, PID (acute pelvic inflammatory disease) Discharge - Sign-Out/Discharge Documenting (check all that apply): Patient Departure - D/C home All imaging exams completed and their final reports reviewed: No Studies - Discharge Plan Condition: Stable Disposition: HOME Prescriptions: HYDROcodone/ACETAMIN 5-325 MG* [[place] 5-325 TAB*] 1 tab PO Q6H PRN #12 tab MDD 1g/4h-4g/day PRN Reason: Pain Patient Education Materials: Pelvic Inflammatory Disease (ED) Forms: *Work Release Referrals: [facility]IAN REFERRAL [Outside] - 3 Days Mayur Giron MD [Medical Doctor] - 2 Days Additional Instructions: 1-Please f/u with SHIPPING INSPECT[facility] Dr Giron for a PAP as soon as possible for further evaluation and treatment. 2- Please continue taking Doxycyline PO as directed in the ER. 3- Take [place] PO as directed and if pelvic pain doesn't improve please take Ibuprofen PO 600mg PO q6-8hrs after meals - Billing Disposition and Condition Condition: STABLE Disposition: Home
== END 2018-09-29 15:20 | disposition home or self-care (01) ==
LOC: UCEAST 13:50
DX: R10.2 Pelvic and perineal pain (principal); N73.9 Female pelvic inflammatory disease, unspecified; R11.0 Nausea; Z87.891 Personal history of nicotine dependence
CPT/HCPCS: 81003; 99212; G0463

== ENCOUNTER 2019-01-06 15:44 | Emergency (ER) | payer SELFPAY ==
--- NOTE | 2019-01-06 16:39 | UC ---
Abdominal Pain Female HPI - HPI Summary HPI Summary: 28 YO FEMALE with a three day hx of pelvic pain pain started as her period stopped pain constant and worsening currently 6-7 /10 hurts to walk no f/c no n/v/d denies vag d/c hx PCOS hx ovarian cyst rupture no UTI symptoms Has an appt early February with her obstetrics gyn physician (?Dr. Watson) - History of Current Complaint Chief Complaint: UCAbdominalPain Stated Complaint: ABDOMINAL PAIN Time Seen by Provider: 01/06/19 16:24 Hx Obtained From: Patient Hx Last Menstrual Period: ended 3 days ago Onset/Duration: Gradual Onset, Lasting Days Timing: Constant Severity Initially: Mild Severity Currently: Moderate Pain Intensity: 7 Pain Scale Used: 0-10 Numeric Location: Other - diffuse lower abd/pelvis Character: Cramping Aggravating Factor(s): Movement Alleviating Factor(s): Nothing Associated Signs and Symptoms: Negative: Diaphoresis, Fever, Cough, Chest Pain, Dizzy, Back Pain, Constipation, Blood in Stool, Urinary Symptoms, Decreased Appetite, Vaginal Bleeding, Vaginal Discharge, Nausea, Vomiting, Diarrhea Female Torso: 1 - pain here Allergies/Adverse Reactions: Allergies Allergy/AdvReac Type Severity Reaction Status Date / Time No Known Allergies Allergy Verified 01/06/19 15:59 PMH/Surg Hx/FS Hx/Imm Hx Previously Healthy: Yes GI/ History: Other Other GI/ History: pyelo x 1, ovarian cyst rupture x 1, PCOS - Surgical History Surgical History: Yes Surgery Procedure, Year, and Place: wisdom teeth - Family History Known Family History: Positive: None, Hypertension Family History: breast cancer, lung cancer - Social History Alcohol Use: Rare Substance Use Type: Marijuana Substance Use Comment - Amount & Last Used: regularly Smoking Status (MU): Former Smoker Amount Used/How Often: 3/4 ppd Length of Time of Smoking/Using Tobacco: 10 years Have You Smoked in the Last Year: Yes Household Exposure Type: Cigarettes Review of Systems All Other Systems Reviewed And Are Negative: Yes Constitutional: Positive: Negative Skin: Positive: Negative Eyes: Positive: Negative ENT: Positive: Negative Respiratory: Positive: Negative Cardiovascular: Positive: Negative Gastrointestinal: Positive: Abdominal Pain Genitourinary: Negative: Dysuria, Hematuria, Frequency, Urgency, Vaginal/Penile Burning, Vaginal/Penile Itching, Vaginal/Penile Discharge, Vaginal/Penile Pain, Vaginal/Penile Tenderness, Ulceration/Lesion, Abnormal Bleeding Motor: Positive: Negative Neurovascular: Positive: Negative Musculoskeletal: Positive: Negative Neurological: Positive: Negative Psychological: Positive: Negative Physical Exam Triage Information Reviewed: Yes Appearance: Well-Appearing, No Pain Distress, Well-Nourished Vital Signs: Initial Vital Signs Temp 98.8 F 01/06/19 15:55 Pulse 78 01/06/19 15:55 Resp 17 01/06/19 15:55 BP 118/79 01/06/19 15:55 Pulse Ox 97 01/06/19 15:55 Eye Exam: Normal Eyes: Positive: Conjunctiva Clear ENT: Positive: Hearing grossly normal, Uvula midline. Negative: Nasal congestion, Nasal drainage, Trismus, Muffled voice, Hoarse voice Dental Exam: Normal Neck: Positive: Supple, Nontender, No Lymphadenopathy Respiratory: Positive: Lungs clear, Normal breath sounds, No respiratory distress, No accessory muscle use Cardiovascular: Positive: RRR, No Murmur, Pulses Normal Abdomen Description: Positive: No Organomegaly, Soft. Negative: Nontender, CVA Tenderness (R), CVA Tenderness (L), Distended, Guarding, Hernia @, McBurney's Point Tenderness, Peritoneal Signs, Pulsatile Mass, Splenomegaly Bowel Sounds: Positive: Present Pelvic Exam: Positive: External Exam Normal, Cervicitis - cervix friable with mucopurulent D/C, Tender w/ Cervical Motion, Tender Adnexa - bilateral, Tender Uterus Musculoskeletal: Positive: ROM Intact, No Edema Neurological: Positive: Alert Psychological Exam: Normal Skin Exam: Normal Re-Evaluation - Re-Evaluation First Eval Re-Evaluation Time: 17:53 Change: Improved Comment: decreased pain after toradol Abd Pain Female Course/Dx - Course Course Of Treatment: UA and UHCG (-) - Differential Dx/Diagnosis Provider Diagnosis: Pelvic pain, PID (acute pelvic inflammatory disease) Discharge - Sign-Out/Discharge Documenting (check all that apply): Patient Departure All imaging exams completed and their final reports reviewed: No Studies - Discharge Plan Condition: Stable Disposition: HOME Prescriptions: DOXYcycline CAP(*) [DOXYcycline 100MG CAP(*)] 100 mg PO BID #28 cap Patient Education Materials: Pelvic Pain in Women (ED) Forms: *Work Release Referrals: No Primary Care Phys,NOPCP [Primary Care Provider] - Additional Instructions: I am unsure of the cause of your pelvic pain It may be due to PID Tests are pending To ER for INCREASED PAIN FEVER VOMITING if not markedly improved in 1-2 days CALL YOUR [employer]BER [employer] FOR[employer]ICS ANALYST AND SEE IF THEY CAN SEE YOU NEXT WEEK - Billing Disposition and Condition Condition: STABLE Disposition: Home
[2019-01-06] MEDS ORDERED: cefTRIAXone VIAL(*) 250 MG VIAL IM ONE (17:00)
[2019-01-06] MEDS ORDERED: Lidocaine 1%* 5 ML VIAL INJ ONE (17:00)
[2019-01-06] MEDS ORDERED: Ketorolac INJ* 30 MG/ML 1 ML VIAL IM ONE (17:01)
[2019-01-06 17:56] VITALS: BP 127/86
[2019-01-06 20:27] LABS: Hematocrit 47 % (33-41); Mean Corpuscular HGB Conc 34 g/dL (31-36); Mean Corpuscular Hemoglobin 29 pg (27-31); Mean Corpuscular Volume 84 fL (80-97); Mean Platelet Volume 8.5 fL (7.4-10.4); Platelet Count 275 10^3/uL (150-450); Red Blood Count 5.61 10^6 /uL (3.70-4.87); Red Cell Distribution Width 12 % (10.5-15); White Blood Count 8.7 10^3/uL (3.5-10.8)
[2019-01-06 20:32] LABS: ABS Basophils 0 10^3/ul (0-0.2); ABS Eosinophils 0 10^3/ul (0-0.6); ABS Lymphocytes 2.7 10^3/ul (1.0-4.8); ABS Monocytes 0.4 10^3/ul (0-0.8); ABS Neutrophils 5.4 10^3/ul (1.5-7.7); ABS Nucleated RBC 0 10^3/ul; Eosinophil % 0.1 %; Lymphocyte % 31.5 %; Nucleated Red Blood Cells % 0
[2019-01-06 21:37] LABS: Erythrocyte Sed Rate 3 mm/Hr (0-19)
--- NOTE | 2019-01-07 07:21 | UC ---
- Progress Note Progress Note: Reviewed blood work from 01/06/19 - non-urgent. However, F/u ObGyn as advised. Course/Dx - Diagnoses Provider Diagnoses: Pelvic pain, PID (acute pelvic inflammatory disease) Discharge - Sign-Out/Discharge Documenting (check all that apply): Post-Discharge Follow Up All imaging exams completed and their final reports reviewed: No Studies - Discharge Plan Condition: Stable Disposition: HOME Prescriptions: DOXYcycline CAP(*) [DOXYcycline 100MG CAP(*)] 100 mg PO BID #28 cap Patient Education Materials: Pelvic Pain in Women (ED) Forms: *Work Release Referrals: No Primary Care Phys,NOPCP [Primary Care Provider] - Additional Instructions: I am unsure of the cause of your pelvic pain It may be due to PID Tests are pending To ER for INCREASED PAIN FEVER VOMITING if not markedly improved in 1-2 days CALL YOUR QUARTER BACKER AND SEE IF THEY CAN SEE YOU NEXT WEEK - Billing Disposition and Condition Condition: STABLE Disposition: Home
[2019-01-07 12:01] LABS: Neisseria gonorrhoeae (GC) RNA Negative (Negative)
[2019-01-07 12:46] LABS: Trichomonas vaginalis Result Negative (Negative)
--- NOTE | 2019-01-07 16:02 | PN ---
Progress Note - Progress Note Date of Service: 01/07/19 Note: patient is vaginal culture came back positive for gardnerella. sent prescription for Flagyl 500 mg twice a day for 7 days. Please call patient and informed of addition of antibiotic. cautioned patient that she not drink alcohol on the medication.
== END 2019-01-06 18:00 | disposition home or self-care (01) ==
LOC: UCEAST 15:44
DX: R10.2 Pelvic and perineal pain (principal); N73.9 Female pelvic inflammatory disease, unspecified; Z32.02 Encounter for pregnancy test, result negative; Z87.891 Personal history of nicotine dependence
CPT/HCPCS: 36415; 81003; 84702; 85025; 85652; 87070; 87480; 87491; 87510; 87591; 87661; 96372; 99212; G0463; J0696; J1885

== ENCOUNTER 2019-06-07 15:16 | Emergency (ER) | payer OTHER ==
[2019-06-07 15:35] VITALS: BP 105/68
--- NOTE | 2019-06-07 15:56 | UC ---
Complaint Female HPI - HPI Summary HPI Summary: 29 year old female with PMH + for endometriosis, PID (due to ruptured ovarian cysts, no h/o STD), presents iwth lower abdominal pain, urinary frequency/ urgency, discomfort with urination x 3-4 days. temp ~ 99. no fever, chills, no flank pain/ tenderness. no other symptoms. has had UTI in past, similar symptoms. on OCP for endometriosis, no sexual activity x 2 months. last menses 3 months ago d/t OCP - History Of Current Complaint Chief Complaint: UCGU Stated Complaint: ABDOMINAL PAIN Time Seen by Provider: 06/07/19 15:33 Hx Obtained From: Patient Hx Last Menstrual Period: med for endometriosis ?: No Onset/Duration: Sudden Onset, Lasting Days Severity Initially: Moderate Severity Currently: Moderate Pain Intensity: 4 Pain Scale Used: 0-10 Numeric Character: Dull, Burning, Cramping Aggravating Factor(s): Urination Associated Signs And Symptoms: Positive: Fever. Negative: Vaginal Bleeding/ Discharge, Vaginal Discharge - Allergies/Home Medications Allergies/Adverse Reactions: Allergies Allergy/AdvReac Type Severity Reaction Status Date / Time No Known Allergies Allergy Verified 06/07/19 15:35 Home Medications: Home Medications Elagolix Sodium [Orilissa] 200 mg PO BID 06/07/19 [History Confirmed 06/07/19] PMH/Surg Hx/FS Hx/Imm Hx - Additional Past Medical History Additional PMH: endometriosis, h/o UTI/ kidney infections Previously Healthy: Yes - Surgical History Surgical History: Yes Surgery Procedure, Year, and Place: wisdom teeth - Family History Known Family History: Positive: None, Hypertension, Non-Contributory Family History: breast cancer, lung cancer - Social History Alcohol Use: Rare Substance Use Type: Marijuana Substance Use Comment - Amount & Last Used: regularly Smoking Status (MU): Former Smoker Amount Used/How Often: 3/4 ppd Length of Time of Smoking/Using Tobacco: 10 years Have You Smoked in the Last Year: Yes When Did the Patient Quit Smoking/Using Tobacco: 2 years ago Household Exposure Type: Cigarettes Review of Systems All Other Systems Reviewed And Are Negative: Yes Constitutional: Positive: Fever - tmax 99 Genitourinary: Positive: Dysuria, Frequency, Urgency. Negative: Hematuria, Vaginal/Penile Burning, Vaginal/Penile Itching, Vaginal/Penile Discharge, Vaginal/Penile Pain, Vaginal/Penile Tenderness Motor: Positive: Negative Neurological: Positive: Negative Is Patient Immunocompromised?: No Physical Exam Triage Information Reviewed: Yes Appearance: Well-Appearing, No Pain Distress, Well-Nourished Vital Signs: Initial Vital Signs Temp 99.4 F 06/07/19 15:28 Pulse 83 06/07/19 15:28 Resp 16 06/07/19 15:28 BP 105/68 06/07/19 15:28 Pulse Ox 97 06/07/19 15:28 Vital Signs Reviewed: Yes Eyes: Positive: Conjunctiva Clear Abdomen Description: Positive: Nontender, No Organomegaly, Soft. Negative: CVA Tenderness (R), CVA Tenderness (L), Distended, Guarding, Peritoneal Signs, Splenomegaly Pelvic Exam: Positive: External Exam Normal - minimal irritation around vaginal opening, normal discharge color, consistency, odor, No Cerv. Motion Tender, No Masses, Tender Adnexa, Tender Uterus - b/l. Negative: Active Bleeding, Blood, Cervicitis, Discharge, Lesions, Mass, Tender w/ Cervical Motion Neurological Exam: Normal Psychological Exam: Normal Skin Exam: Normal Complaint Female Dx - Course Course Of Treatment: - negative U/A: negative Pelvic exam- TTP over uterus, normal vaginal exam otherwise - Continue to monitor symptoms, if worsens, return - Follow up with OB/ SCREENING UNIT REGISTERED NURSE tomorrow for possible imaging - Motrin/ Tylenol as needed for pain - Urine sent for cultures, should return within 1-2 days - Go to ER with flank pain/ back pain, fever > 102, increasing abdominal pain - Cultures sent for STD, BV, Yeast infection, should return within 1-2 days, you will be called with results. - Differential Dx/Diagnosis Provider Diagnosis: Pelvic pain Discharge ED - Sign-Out/Discharge Documenting (check all that apply): Patient Departure All imaging exams completed and their final reports reviewed: No Studies - Discharge Plan Condition: Good Disposition: HOME Patient Education Materials: Pelvic Pain in Women (ED) Referrals: No Primary Care Phys,NOPCP [Primary Care Provider] - [facility] [Outside] Additional Instructions: - Continue to monitor symptoms, if worsens, return - Follow up with OB/ SCREENING UNIT REGISTERED NURSE tomorrow for possible imaging - Motrin/ Tylenol as needed for pain - Urine sent for cultures, should return within 1-2 days - Go to ER with flank pain/ back pain, fever > 102, increasing abdominal pain - Cultures sent for STD, BV, Yeast infection, should return within 1-2 days, you will be called with results. - Billing Disposition and Condition Condition: GOOD Disposition: Home - Attestation Statements Provider Attestation: Per institutional requirements, I have reviewed the chart, however, I was not consulted specifically or made aware of this patient by the midlevel provider. I did not personally evaluate, interact with , or disposition this patient.
[2019-06-08 13:56] LABS: Chlamydia trachomatis NAA Negative (Negative); Neisseria gonorrhoeae (GC) NAA Negative (Negative)
--- NOTE | 2019-06-08 17:41 | UC ---
- Progress Note Progress Note: neg rocío, neg Gardnerella no change ljj 06/08/19 Course/Dx - Diagnoses Provider Diagnoses: Pelvic pain Discharge ED - Sign-Out/Discharge Documenting (check all that apply): Post-Discharge Follow Up All imaging exams completed and their final reports reviewed: No Studies - Discharge Plan Condition: Good Disposition: HOME Patient Education Materials: Pelvic Pain in Women (ED) Referrals: [facility] [Outside] No Primary Care Phys,NOPCP [Primary Care Provider] - Additional Instructions: - Continue to monitor symptoms, if worsens, return - Follow up with OB/ PRIMER BOXER tomorrow for possible imaging - Motrin/ Tylenol as needed for pain - Urine sent for cultures, should return within 1-2 days - Go to ER with flank pain/ back pain, fever > 102, increasing abdominal pain - Cultures sent for STD, BV, Yeast infection, should return within 1-2 days, you will be called with results. - Billing Disposition and Condition Condition: GOOD Disposition: Home
--- NOTE | 2019-06-08 17:53 | UC ---
- Progress Note Progress Note: NEg GC/CH no change ljj 06/08/19 Course/Dx - Diagnoses Provider Diagnoses: Pelvic pain Discharge ED - Sign-Out/Discharge Documenting (check all that apply): Post-Discharge Follow Up All imaging exams completed and their final reports reviewed: No Studies - Discharge Plan Condition: Good Disposition: HOME Patient Education Materials: Pelvic Pain in Women (ED) Referrals: [facility] [Outside] No Primary Care Phys,NOPCP [Primary Care Provider] - Additional Instructions: - Continue to monitor symptoms, if worsens, return - Follow up with OB/ PHYSICIAN PEDIATRICIAN tomorrow for possible imaging - Motrin/ Tylenol as needed for pain - Urine sent for cultures, should return within 1-2 days - Go to ER with flank pain/ back pain, fever > 102, increasing abdominal pain - Cultures sent for STD, BV, Yeast infection, should return within 1-2 days, you will be called with results. - Billing Disposition and Condition Condition: GOOD Disposition: Home
== END 2019-06-07 16:54 | disposition home or self-care (01) ==
LOC: UCEAST 15:16
DX: R10.2 Pelvic and perineal pain (principal); Z87.891 Personal history of nicotine dependence
CPT/HCPCS: 81003; 84702; 87086; 87480; 87491; 87510; 87591; 99212; G0463

== ENCOUNTER 2019-09-01 08:28 | Day surgery (SDC) | payer OTHER ==
[~2019-09-01 08:28] MED LIST: Buffered Lidocaine 1% SYRIN* 1 ML/SYRINGE INTRADERM ONE; Lactated Ringers 1000 ML Bag* 1,000 ML IV SCH; Sodium Citrate/Citric Acid* 15 ML UDC PO ONE
[2019-09-01] MEDS ORDERED: Sodium Citrate/Citric Acid* 15 ML UDC ONE (08:33)
[2019-09-01] MEDS ORDERED: Midazolam* 1 MG/ML 2 ML VIAL (2 MG) ONE (10:40)
[2019-09-01] MEDS ORDERED: Propofol* 10 MG/ML 20 ML BTL ONE (10:47)
[2019-09-01] MEDS ORDERED: Lidocaine 2% PF * 5 ML VIAL ONE (10:47)
[2019-09-01] MEDS ORDERED: fentaNYL* 50 MCG/ML 2 ML VIAL (100 MCG VIAL) ONE ×2 (10:47→12:42)
[2019-09-01] MEDS ORDERED: Rocuronium* 10 MG/ML VIAL ONE (10:47)
[2019-09-01] MEDS ORDERED: Ketorolac INJ* 30 MG/ML 1 ML VIAL ONE (11:11)
[2019-09-01] MEDS ORDERED: DiMENhydriNATE IV* 50 MG/ML VIAL IV PUSH PRN (11:16)
[2019-09-01] MEDS ORDERED: Naloxone* 0.4 MG/ML 1 ML VIAL IV PRN (11:16)
[2019-09-01] MEDS ORDERED: fentaNYL* 50 MCG/ML 2 ML VIAL (100 MCG VIAL) IV PRN (11:16)
[2019-09-01] MEDS ORDERED: Acetaminophen IV 1GM/100ML * 1,000 MG/100 ML VIAL IVPB ONE (11:16)
[2019-09-01] MEDS ORDERED: Ondansetron INJ* 2 MG/ML VIAL ONE (11:27)
[2019-09-01] MEDS ORDERED: Sugammadex * 500 MG/5 ML VIAL IV PUSH ONE (11:33)
[2019-09-01] MEDS ORDERED: Acetaminophen IV 1GM/100ML * 100 ML ONE (12:10)
[2019-09-01 13:33] VITALS: BP 127/72
--- NOTE | 2019-09-01 20:13 | OP ---
ATE OF OPERATION: 09/01/19 - [facility] DATE OF : 89 SURGEON: Derick Watson MD ZIGZAG STITCHER: Dr. Garcia. ANESTHESIA: General anesthesia. PRE-OP DIAGNOSIS: Pelvic pain. POST-OP DIAGNOSIS: Pelvic pain plus endometriosis. OPERATIVE PROCEDURE: Laparoscopy. ESTIMATED BLOOD LOSS: Minimal. COMPLICATIONS: None. FINDINGS: On exam under anesthesia, uterus was mid positioned. On laparoscopy , the anterior bladder flaps contained clear endometrial implants that were miliary along the whole anterior bladder flap. They were also noted along the left and right ovary. There were no specific endometriomas noted along the left ovary in the cul-de-sac along the ovarian fossa. Lateral to the uterosacral ligament was an inflammatory mass similar in appearance to the miliary endometriosis with clear vesicles and a hemorrhagic area approximately 5 mm and an adhesion across it. The rest of the uterus, the liver surface and the gallbladder appeared normal. The appendix was not well visualized. DESCRIPTION OF PROCEDURE: The patient identified, procedure identified as a laparoscopy. The patient was taken to the operating room, prepped and draped in the usual fashion in dorsal lithotomy position under general anesthesia. A sponge stick was placed in the vagina for manipulation. A small infraumbilical incision was made and a Veress needle inserted through this. Abdomen was insufflated to 15 mmHg. The Veress needle was removed and the trocar was inserted under direct visualization using a Visiport. Lateral trocars were placed 8 cm lateral to the umbilicus on both sides under direct visualization. The above findings were noted. The inflammatory mass on the right ovary was grasped and using the LigaSure, was found to be pedunculated off the right ovary and it was cauterized and then excised. Adhesion on this site was also lysed and excised. The inflammatory mass was then placed into a 5 mm bag and brought out through the left abdominal trocar site. Good hemostasis was verified and decision was to terminate the procedure at this point. All instruments were removed from the abdomen. The abdomen was deflated of CO2. The skin was closed with 4-0 Vicryl in a subcuticular fashion and with skin glue. Sponge and sponge stick were removed from vagina and the patient returned to recovery room in stable condition. All sponge and instrument counts were correct. [id number]/[facility] #: [id number] [facility]
== END 2019-09-01 13:34 | disposition home or self-care (01) ==
LOC: OR 08:28
PROVIDERS: ATTEND Obstetrics & Gynecology
DX: D27.0 Benign neoplasm of right ovary (principal); N80.1 Endometriosis of ovary; R10.2 Pelvic and perineal pain; F41.8 Other specified anxiety disorders; Z87.891 Personal history of nicotine dependence
CPT/HCPCS: 81025; 88305; 88341; 88342; A9270-GY; J1885; J2250; J2405; J2704; J3010

== ENCOUNTER 2019-10-17 12:28 | Emergency (ER) | payer OTHER ==
--- OUTSIDE RECORDS SUMMARY | 2019-10-17 12:36 | XMS REPORT | Continuity of Care Document ---
:1990 External Reference #:[id number] Author Name Derick Watson M.D. Address [address] [place] [address] Problems Active Problems Provider Date Anxiety Onset: 10/25/2015 Depressive disorder Onset: 10/25/2015 Endometriosis of ovary Derick Watson M.D. Onset: 04/26/2019 Endometriosis of fallopian tube Jessica Webber CNM Onset: 09/01/2019 Social History Type Date Description Comments Sex Unknown Cigarette Use Former Cigarette Smoker ETOH Use Occasionally consumes approx 1-2 drinks alcohol qyr Recreational Drug Use Uses Marijuana Daily Tobacco Use Start: Unknown End: Patient is a former Unknown smoker Smoking Status Reviewed: 09/19/19 Patient is a former smoker Exercise Type/Frequency Exercises regularly Seat Belt/Car Seat Always uses seat belt Allergies, Adverse Reactions, Alerts Active Allergies Reaction Severity Comments Date Amoxicillin 09/19/2019 Inactive Allergies NKDA 10/06/2018 Medications Active Medications SIG Qnty Indications Ordering Date Provider Lupron Depot one vial 1units N80.0 Derick Gresham 09/19/2019 (1-Month) intramuscular every Liliane Watson 3.75mg month x 3 Kit Ibuprofen 1 by mouth four times 30tabs Z01.818 Derick Gresham 02/22/2019 600mg a day 2days prior to Liliane Watson Tablets period and 1st 2 days of period History Medications Amoxicillin take one by 21tabs Jessica Webber CNM 09/08/2019 - 500mg mouth every 8 09/15/2019 Tablets hours (3 times/ day) for 1 week Orilissa Take 1 Tablet By 56tabs Derick Watson 05/03/2019 - 200mg Tablets Mouth Two Times M.DAna 09/18/2019 Daily Medications Administered in Office Medication SIG Qnty Indications Ordering Provider Date PT SCRN Tbco Id as Non User Derick Watson M.D. 08/16/2019 Injection PT SCRN Tbco Id as Non User Derick Watson M.D. 07/20/2019 Injection PT SCRN Tbco Id as Non User Derick Watson M.D. 05/03/2019 Injection PT SCRN Tbco Id as Non User Derick Watson M.D. 02/22/2019 Injection PT SCRN Tbco Id as Non User Derick Watson M.D. 01/19/2019 Injection Immunizations CPT Code Status Date Vaccine Lot # U-Td Given 07/02/2010 Td(Adult),Unspecified 21661 Given 12/17/2007 Gardasil Vaccine For HPV [id number] Given 06/14/2003 Influenza Vaccine Not Specified Administered Age 3 And Older 50610 Given 08/28/1999 Hepatitis B Vaccine Pediatric/Adolescent 37661 Given 03/27/1999 Hepatitis B Vaccine Pediatric/Adolescent 86254 Given 02/25/1999 Hepatitis B Vaccine Pediatric/Adolescent U-Polio Given 06/02/1996 Polio,Unspecified U-DTaP Given 06/02/1996 DTaP,Unspecified 78012 Given 06/02/1996 MMR Vaccine U-DTaP Given 02/14/1994 DTaP,Unspecified U-Polio Given 02/14/1994 Polio,Unspecified 99707 Given 09/05/1993 Hib Hboc Conjugate 4 Dose Schedule 23514 Given 08/15/1993 MMR Vaccine U-DTaP Given 1992 DTaP,Unspecified 01068 Given 1992 Hib Hboc Conjugate 4 Dose Schedule U-Polio Given 1992 Polio,Unspecified U-DTaP Given 1992 DTaP,Unspecified 58883 Given 1992 Hib Hboc Conjugate 4 Dose Schedule U-Polio Given 1992 Polio,Unspecified U-DTaP Given 1992 DTaP,Unspecified 59413 Given 1992 Hib Hboc Conjugate 4 Dose Schedule Vital Signs Date Vital Result Comment 09/19/2019 8:11am BP Systolic 116 mmHg BP Diastolic 58 mmHg Height 62 inches 5'2" Weight 157.00 lb BMI (Body Mass Index) 28.7 kg/m2 Last Menstrual Period 5178180 0 Parity 0 09/08/2019 3:04pm BP Systolic 118 mmHg BP Diastolic 72 mmHg Body Temperature 98.0 F Height 62 inches 5'2" Weight 157.00 lb BMI (Body Mass Index) 28.7 kg/m2 0 Parity 0 Results Test Acquired Date Facility Test Result H/L Range Note Laboratory test 09/01/2019 [facility] Surgical SEE RESULT 1 [place] [address] Pathology BELOW [phone] Laboratory test 09/01/2019 [facility] SEE RESULT 2 [place] [address] Pathology BELOW [phone] 1 SEE RESULT BELOW Name: TAMICA JOHNSON : [address]: Derick Watson MD Acct: [id number] Unit: [id number] AGE: 29 Location: OR Re09/01/19 SEX: F Status: [facility] SPEC: [id number] TIBURCIO: 09/01/19- SUBM DR: Derick Watson MD REQ: [id number] RECD: 09/01/19 STATUS: SOUT _ ORDERED: LEVEL 4 FINAL DIAGNOSIS Ovary, right, excision: -- Adenofibroma. PRE-OPERATIVE DIAGNOSIS Endometriosis of ovary, pelvic, perineal pain GROSS DESCRIPTION The specimen is received in formalin labeled, Ovarian Mass-Right, and consists of a 2.4 x 2.0 by up to 1.1 cm zimmerman-pink irregular bosselated papilliferous rubbery soft tissue fragment which is serially sectioned and entirely submitted in two cassettes. Signed by and Reported on: Wanda Varela MD 09/02/19 1556 END OF REPORT DEPARTMENT OF PATHOLOGY, [address] [place] [address] Jc Flanagan M.D. Director [facility] # [id number] 2 SEE RESULT BELOW Name: TAMICA JOHNSON : [address]: Derick Watson MD Acct: [id number] Unit: [id number] AGE: 29 Location: OR Re09/01/19 SEX: F Status: [facility] SPEC: [id number] TIBURCIO: 09/01/19- SUBM DR: Derick Watson MD REQ: [id number] RECD: 09/01/199761 STATUS: SOUT _ ORDERED: LEVEL 4, IHC TECH, ADD, IHC TECH, 1ST ADDENDUM Addendum: This case is discussed with an reviewed after discussion with Dr. Watson regarding intraoperative findings and clinical history of progestational agent therapy. The current sample demonstrates a polypoid growth pattern with dense fibrous stroma focal cyst formation with the polypoid elements and cyst lined primarily by low columnar epithelium demonstrating significant tubal metaplasia. No features suggesting a serous neoplasm are seen. In this context these changes likely represent maturation/tubal metaplasia of an endometriotic lesion in the context of processed gestational agent therapy. Immunohistochemical stains for calponin and desmin were performed with appropriate controls at [facility] and interpreted by [facility] [place] and are negative. Addendum Signed (signature on file) Jc Flanagan MD 8540 FINAL DIAGNOSIS Ovary, right, excision: -- Adenofibroma. CONTINUED ON NEXT PAGE DEPARTMENT OF PATHOLOGY, [address] [place] [address] Jc Flanagan M.D. Director [facility] # [id number] PRE-OPERATIVE DIAGNOSIS Endometriosis of ovary, pelvic, perineal pain GROSS DESCRIPTION The specimen is received in formalin labeled, Ovarian Mass-Right, and consists of a 2.4 x 2.0 by up to 1.1 cm zimmerman-pink irregular bosselated papilliferous rubbery soft tissue fragment which is serially sectioned and entirely submitted in two cassettes. Signed by and Reported on: Wanda Varela MD 09/02/19 5500 END OF REPORT DEPARTMENT OF PATHOLOGY, [address] [place] [address] Jc Flanagan M.D. Director [facility] # [id number] Procedures Date Code Description Status 09/01/2019 74979 Diagnostic Laparoscopy Completed Medical Devices Description No Information Available Encounters Type Date Location Provider Dx Diagnosis Office Visit 08/16/2019 [facility] Derick Watson, Z01.818 Encounter for other 3:20p M.D. preprocedural examination Office Visit 07/20/2019 [facility] Derick Watson, N80.1 Endometriosis of ovary 2:20p M.D. Office Visit 05/03/2019 [facility] Office Derick Watson N80.1 Endometriosis of ovary 11:00a M.D. Assessments Date Code Description Provider 09/19/2019 N80.0 Endometriosis of uterus Derick Watson M.D. 09/08/2019 Z09 Encounter for follow-up examination after Jessica Webber CNM completed treatment for conditions other than malignant neoplasm 09/01/2019 R10.2 Pelvic and perineal pain Derick Watson M.D. 09/01/2019 N80.1 Endometriosis of ovary Derick Watson M.D. 08/16/2019 Z01.818 Encounter for other preprocedural Derick Watson M.D. examination 07/20/2019 N80.1 Endometriosis of ovary Derick Watson M.D. 05/03/2019 N80.1 Endometriosis of ovary Derick Watson M.D. Plan of Treatment 08/16/2019 - Derick Watson M.D.Z01.818 Encounter for other preprocedural examinationComments:DISCUSSED RISKS OF SURGERY FOR LAPAROSCOPY INCLUDING BUT NOT LIMITED TO INJURY TO BOWEL, BLADDER, URETERS, NERVES AND BLOOD VESSELS. DISCUSSED BLEEDING AND INFECTION RISKS AND POSSIBLE NEED FOR TRANSFUSION. PT UNDERSTANDS RISK OF WOUND COMPLICATION INCLUDING BREAKDOWN AND HERNIA. RISK OF DEEP VENOUS THROMBOSIS AND SEQUELAE. REASONS FOR SURGERY AND THE BENEFITS DERIVED. PT UNDERSTANDS THE ALTERNATIVESAND HAS HAD OPPORTUNITY TO ASK QUESTIONS WITH APPROPRIATE ANSWERS GIVEN.LENGTH OF TYPICAL HOSPITAL STAY AND FULL RECOVERY IF NO COMPLICATIONS OCCUR DISCUSSED.PREVENTATIVE MEASURES FOR CERTAIN COMPLICATIONS DISCUSSED. Functional Status Description No Information Available Mental Status Description No Information Available Referrals Description No Information Available
--- OUTSIDE RECORDS SUMMARY | 2019-10-17 12:36 | XMS REPORT | Continuity of Care Document ---
:1990 External Reference #:[id number] Author Name Teo Garcia JR, DO (transmitted by agent of provider Loraine Reddy ) Address [address] [facility], [facility] [place] [address] Problems Active Problems Provider Date Anxiety Onset: 10/25/2015 Endometriosis of ovary Derick Watson M.D. Onset: 04/26/2019 Endometriosis of fallopian tube Jessica Webber CNM Onset: 09/01/2019 Social History Type Date Description Comments Sex Unknown Cigarette Use Former Cigarette Smoker ETOH Use Occasionally consumes approx 1-2 drinks alcohol qyr Recreational Drug Use Uses Marijuana Daily Tobacco Use Start: Unknown End: Patient is a former Unknown smoker Smoking Status Reviewed: 10/10/19 Patient is a former smoker Exercise Type/Frequency Exercises regularly Seat Belt/Car Seat Always uses seat belt Allergies, Adverse Reactions, Alerts Active Allergies Reaction Severity Comments Date Amoxicillin 09/19/2019 Inactive Allergies NKDA 10/06/2018 Medications Active Medications SIG Qnty Indications Ordering Provider Date Orilissa 1 by mouth every 90tabs Teo Garcia JR, 10/10/2019 150mg Tablets day DO Ibuprofen 1 by mouth four 30tabs Z01.818 Derick Watson, 02/22/2019 600mg Tablets times a day M.D. 2days prior to period and 1st 2 days of period History Medications Lupron Depot one vial 1units N80.0 Derick Gresham 09/19/2019 - (1-Month) intramuscular every SilvianoberLiliane 10/10/2019 3.75mg month x 3 Kit Amoxicillin take one by mouth 21tabs Jessica 09/08/2019 - 500mg every 8 hours (Erin Webber CNM 09/15/2019 Tablets times/ day) for 1 week Orilissa Take 1 Tablet By 56tabs Derick Gresham 05/03/2019 - 200mg Mouth Two Times Daily Liliane Watson 09/18/2019 Tablets Medications Administered in Office Medication SIG Qnty [...] Vaccine Lot # U-Td Given 07/02/2010 Td(Adult),Unspecified 73228 Given 12/17/2007 Gardasil Vaccine For HPV Q2039 Given 06/14/2003 Influenza Vaccine Not Specified Administered Age 3 And Older 22253 Given 08/28/1999 Hepatitis B Vaccine Pediatric/Adolescent 41853 Given 03/27/1999 Hepatitis B Vaccine Pediatric/Adolescent 88730 Given 02/25/1999 Hepatitis B Vaccine Pediatric/Adolescent U-Polio Given 06/02/1996 Polio,Unspecified U-DTaP Given 06/02/1996 DTaP,Unspecified 48820 Given 06/02/1996 MMR Vaccine U-DTaP Given 02/14/1994 DTaP,Unspecified U-Polio Given 02/14/1994 Polio,Unspecified 96102 Given 09/05/1993 Hib Hboc Conjugate 4 Dose Schedule 64324 Given 08/15/1993 MMR Vaccine U-DTaP Given 1992 DTaP,Unspecified 70894 Given 1992 Hib Hboc Conjugate 4 Dose Schedule U-Polio Given 1992 Polio,Unspecified U-DTaP Given 1992 DTaP,Unspecified 47781 Given 1992 Hib Hboc Conjugate 4 Dose Schedule U-Polio Given 1992 Polio,Unspecified U-DTaP Given 1992 DTaP,Unspecified 54981 Given 1992 Hib Hboc Conjugate 4 Dose Schedule Vital Signs Date Vital Result Comment 10/10/2019 10:12am BP Systolic 122 mmHg BP Diastolic 74 mmHg Height 62 inches 5'2" Weight 155.00 lb BMI (Body Mass Index) 28.3 kg/m2 Last Menstrual Period 1613522 0 Parity 0 09/19/2019 8:11am BP Systolic 116 mmHg BP Diastolic 58 mmHg Height 62 inches 5'2" Weight 157.00 lb BMI (Body Mass Index) 28.7 kg/m2 Last Menstrual Period 1458166 0 Parity 0 Results Test Acquired Date Facility Test Result H/L Range Note Laboratory test 09/01/2019 [facility] Surgical SEE RESULT 1 [place] [address] Pathology BELOW [phone] Laboratory test 09/01/2019 [facility] SEE RESULT 2 [place] [address] Pathology BELOW [phone] 1 SEE RESULT BELOW Name: TAMICA JOHNSON : [address]: Derick Watson MD Acct: [id number] Unit: [id number] AGE: 29 Location: OR Re09/01/19 SEX: F Status: [facility] SPEC: [id number] TIBURCIO: 09/01/19- SUBM DR: Derick Watson MD REQ: [id number] RECD: 09/01/19 STATUS: SOUT _ ORDERED: LEVEL [...] 1556 END OF REPORT DEPARTMENT OF PATHOLOGY, [address] [place] [address] Jc Flanagan M.D. Director [facility] # [id number] 2 SEE RESULT BELOW Name: TAMICA JOHNSON : [address]: Derick Watson MD Acct: [id number] Unit: [id number] AGE: 29 Location: OR Re09/01/19 SEX: F Status: DEP SD SPEC: [id number] TIBURCIO: 09/01/19- SUBM DR: Derick Watson MD REQ: [id number] RECD: 09/01/19 STATUS: SOUT _ ORDERED: LEVEL 4, IHC [...] desmin were performed with appropriate controls at [facility] and interpreted by [facility] [place] and are negative. Addendum Signed (signature on file) Jc Flanagan MD 1354 FINAL DIAGNOSIS Ovary, right, excision: -- Adenofibroma. CONTINUED ON NEXT PAGE DEPARTMENT OF PATHOLOGY, [address] [place] [address] Jc Flanagan M.D. Director [facility] # [id number] PRE-OPERATIVE DIAGNOSIS Endometriosis of ovary, pelvic, perineal pain GROSS DESCRIPTION The specimen is received in formalin labeled, Ovarian Mass-Right, and consists of a 2.4 x 2.0 by up to 1.1 cm zimmerman-pink irregular bosselated papilliferous rubbery soft tissue fragment which is serially sectioned and entirely submitted in two cassettes. Signed by and Reported on: Wanda Plocharczyk, MD 09/02/19 1556 END OF REPORT DEPARTMENT OF PATHOLOGY, [address] [place] [address] Jc Flanagan M.D. Director [facility] # [id number] Procedures Date Code Description Status 09/01/2019 28893 Diagnostic Laparoscopy Completed Medical Devices Description No Information Available Encounters Type Date Location Provider Dx Diagnosis Office Visit 09/19/2019 [facility] Derick Watson, N80.0 Endometriosis of 8:20a M.D. uterus Office Visit 08/16/2019 [facility] Derick Watson, Z01.818 Encounter for other 3:20p M.D. preprocedural examination Office Visit 07/20/2019 [facility] Office Derick Watson, N80.1 Endometriosis of ovary 2:20p M.D. Office Visit 05/03/2019 [facility] Office Derick Watson, N80.1 Endometriosis of ovary 11:00a M.D. Assessments [...]
--- NOTE | 2019-10-17 13:44 | UC ---
Lower Extremity/Ankle HPI - HPI Summary HPI Summary: 29 y/o female presents to the urgent care c/o left lower leg pain with pulsating sensation for the past 3-4 days. Pt reports Hx of endometriosis and had Laparascopic surgery about a months ago. She was told to rest and walk after a week, However she hasn't been able since in the surgery they couldn't removed all the endometriosis. she got her period on 09/19/2019 and was very painful despite taking Orilissa PO, that she has been in bed and not walking as recommended. Her left gayla pain started suddenly. She is very concerned w/ a blood clot and requests an US. Pain is 4/10 at rest and constant and pulsating and 6/10 when she walks. Pt denies fever, SOB, dizziness, numbness or tingling sensation, chest pain, abdominal pain, N/V/D. - History of Current Complaint Chief Complaint: UCLowerExtremity Stated Complaint: LEG CRAMPS/SURGERY 1 MONTH AGO Time Seen by Provider: 10/17/19 13:41 Hx Obtained From: Patient Hx Last Menstrual Period: ?: No Onset/Duration: Sudden Onset, Lasting Days - 4 days, Still Present, Worse Since - today Severity Initially: Mild Severity Currently: Moderate Pain Intensity: 6 - w/ walking Pain Scale Used: 0-10 Numeric Aggravating Factor(s): Ambulation Alleviating Factor(s): Rest, Elevation Able to Bear Weight: Yes - Risk Factors Gout Risk Factors: Negative DVT Risk Factors: Oral Contraceptives, Recent Period Of Bedrest, Recent Surgery Septic Arthritis Risk Factor: Negative - Allergies/Home Medications Allergies/Adverse Reactions: Allergies Allergy/AdvReac Type Severity Reaction Status Date / Time amoxicillin Allergy GI Upset Verified 10/17/19 12:57 PMH/Surg Hx/FS Hx/Imm Hx Previously Healthy: Yes Other GI/ History: Endometriosis - Surgical History Surgical History: Yes Surgery Procedure, Year, and Place: wisdom teeth - Family History Known Family History: Positive: None, Hypertension, Non-Contributory Family History: breast cancer, lung cancer - Social History Alcohol Use: Rare Substance Use Type: Marijuana Substance Use Comment - Amount & Last Used: regularly, for pain Smoking Status (MU): Former Smoker Amount Used/How Often: 3/4 ppd- vapes now Length of Time of Smoking/Using Tobacco: 10 years Have You Smoked in the Last Year: Yes When Did the Patient Quit Smoking/Using Tobacco: 2 years ago Household Exposure Type: Cigarettes Review of Systems All Other Systems Reviewed And Are Negative: Yes Constitutional: Positive: Negative Skin: Positive: Negative Eyes: Positive: Negative ENT: Positive: Negative Respiratory: Positive: Negative Cardiovascular: Positive: Negative Gastrointestinal: Positive: Negative Genitourinary: Positive: Negative Motor: Positive: Negative Neurovascular: Positive: Negative Musculoskeletal: Positive: Other: - left calf pain worse w/ walking Neurological: Positive: Negative Psychological: Positive: Negative Is Patient Immunocompromised?: No Physical Exam - Summary Physical Exam Summary: Vital Signs Reviewed: Yes Appearance: Well-Appearing, No Pain Distress, Well-Nourished, female sitting in the examining table w/o any apparent pain distress Eyes: Positive: Conjunctiva Clear - PERRLA< JOSE C, fundi grossly WNL ENT: Positive: Normal ENT inspection, Hearing grossly normal, Pharynx normal, TMs normal, Uvula midline Neck: Positive: Supple, Nontender, No Lymphadenopathy Respiratory: Positive: Chest non-tender, Lungs clear, Normal breath sounds, No respiratory distress Cardiovascular: Positive: RRR, No Murmur, Pulses Normal, Brisk Capillary Refill Abdomen Description: Positive: Nontender, No Organomegaly, Soft. Negative: CVA Tenderness (R), CVA Tenderness (L) Bowel Sounds: Positive: Present Extremities: R/L extremity with/without deformity or asymmetry when compared to the R/L. No soft tissue swelling or edema. No overlying erythema, warmth, discoloration. No lesions or break in skin integrity. Diameter of calves 14 cm. Soft tissues of posterior lower legs are soft, supple, nontender and no palpable cords or evidence of thrombophlebitis. No evidence of gangrene or compartment syndrome. Medial thigh is without soft tissue swelling or tender to palpation. Negative Homans sign. Pint tendess on the mid posterior side of the left lower leg. No proximal lymphangitis or lymphadenopathy. Positive sensation over B/l lower legs, positive pulses, capillary refill intact and brisk. Neurological Exam: Normal Psychological Exam: Normal Skin Exam: Normal Triage Information Reviewed: Yes Vital Signs: Initial Vital Signs Temp 98.7 F 10/17/19 12:52 Pulse 66 10/17/19 12:52 Resp 16 10/17/19 12:52 BP 103/63 10/17/19 12:52 Pulse Ox 100 10/17/19 12:52 Lower Extremity Course/Dx - Course Course Of Treatment: 29 y/o female presents to the urgent care c/o left lower leg pain with pulsating sensation for the past 3-4 days. Pt reports Hx of endometriosis and had Laparascopic surgery about a months ago. She was told to rest and walk after a week, However she hasn't been able since in the surgery they couldn't removed all the endometriosis. she got her period on 09/19/2019 and was very painful despite taking Orilissa PO, that she has been in bed and not walking as recommended. Her left gayla pain started suddenly. She is very concerned w/ a blood clot and requests an US. Pain is 4/10 at rest and constant and pulsating and 6/10 when she walks. Pt denies fever, SOB, dizziness, numbness or tingling sensation, chest pain, abdominal pain, N/V/D. Hx obtained. PE: WNL except w/ tenderness on palpation in the posterior mid Lower leg, Kay' s negative. Pt explained there is probably not a blood and it may be a varicose vein. However she insists on getting Us. Pt explained the wait will be long since there are 4 patient before her and Pt states she rather wait and have a piece of mind. Duplex ultrasound ordered to r/o DVT:Impressione:VEINS: The venous system of the left lower extremity is compressible throughout its course, with normal flow on color Doppler imaging and normal response to augmentation on spectral Doppler imaging. SOFT TISSUES: Unremarkable. OTHER FINDINGS: None. IMPRESSION: NO LEFT LOWER EXTREMITY DEEP VEIN THROMBOSIS. Pt educated on results. Pt Advised to take Ibuprofen PO to alleviate symptoms and to avoid strenuous exercise, but she should walk. If not improvement of symptoms to f/u w/ his PCP 2-3 days for further treatment. D/C instructions explained. Pt understood and agreed w/ plan of care. Pt left the clinic hemodynamically stable, A&OX3 - Differential Dx/Diagnosis Differential Diagnosis/HQI/PQRI: Compartment Syndrome, Contusion, DVT, Sprain, Strain, Tendonitis Provider Diagnosis: Pain of left calf Discharge ED - Sign-Out/Discharge Documenting (check all that apply): Patient Departure - D/C home All imaging exams completed and their final reports reviewed: Yes - Discharge Plan Condition: Stable Disposition: HOME Patient Education Materials: Leg Pain (ED) Referrals: [facility] [Outside] - 3 Days Additional Instructions: 1- Please continue taking Tylenol PO q6-8hrs prn as instructed after meals to alleviate for pain. rest, elevate your leg and avoid strenuous exercise 2-If symptoms do not improve or worsen please w/ Sports Medicine or your PCP for further further evaluation and treatment. - Billing Disposition and Condition Condition: STABLE Disposition: Home
[2019-10-17 15:59] VITALS: BP 110/65
== END 2019-10-17 17:25 | disposition home or self-care (01) ==
LOC: UCEAST 12:28
DX: M79.662 Pain in left lower leg (principal); Z88.0 Allergy status to penicillin; Z87.891 Personal history of nicotine dependence
CPT/HCPCS: 99211; G0463

== ENCOUNTER 2019-12-01 19:11 | Emergency (ER) | payer OTHER ==
--- NOTE | 2019-12-01 19:33 | UC ---
Respiratory Complaint HPI - HPI Summary HPI Summary: 29 yo female presents with URI symptoms. She tells me that over the last 5 days she has had cough, feeling short of breath, and wheezing. Today developed body aches and feeling fatigued. She has not been taking anything OTC for her symptoms. She has been at home doing self isolation and has not had any positive COVID contacts. She does not smoke, but does vape. She denies sore throat, sinus symptoms, chest pain, abdominal pain, n/v. - History of Current Complaint Stated Complaint: BREATHING ISSUES Time Seen by Provider: 12/01/19 19:32 Hx Obtained From: Patient Hx Last Menstrual Period: Onset/Duration: Gradual Onset Severity Initially: Moderate Severity Currently: Moderate Pain Intensity: 5 Pain Scale Used: 0-10 Numeric - Allergies/Home Medications Allergies/Adverse Reactions: Allergies Allergy/AdvReac Type Severity Reaction Status Date / Time amoxicillin Allergy GI Upset Verified 12/01/19 19:44 Home Medications: Home Medications Ibuprofen TAB* [Motrin TAB* 600 MG] 600 mg PO Q6H PRN 08/17/19 [History Confirmed 12/01/19] Albuterol HFA INHALER* [Ventolin HFA Inhaler*] 2 puff INH Q6H PRN #1 mdi [Rx] Leuprolide 11.25 MG KIT [Lupron Depot*] 11.25 mg IM ONCE 12/01/19 [History Confirmed 12/01/19] PMH/Surg Hx/FS Hx/Imm Hx - Additional Past Medical History Additional PMH: Endometriosis - Surgical History Surgical History: Yes Surgery Procedure, Year, and Place: wisdom teeth - Family History Known Family History: Positive: Hypertension, Other Family History: breast cancer, lung cancer - Social History Lives: With Family Alcohol Use: Rare Substance Use Type: Marijuana Substance Use Comment - Amount & Last Used: regularly, for pain Smoking Status (MU): Former Smoker Amount Used/How Often: 3/4 ppd- vapes now Length of Time of Smoking/Using Tobacco: 10 years Have You Smoked in the Last Year: Yes When Did the Patient Quit Smoking/Using Tobacco: 2 years ago Household Exposure Type: Cigarettes Review of Systems All Other Systems Reviewed And Are Negative: No Constitutional: Positive: Other - Body aches Skin: Positive: Negative Eyes: Positive: Negative ENT: Positive: Negative Respiratory: Positive: Shortness Of Breath, Cough Cardiovascular: Positive: Negative Gastrointestinal: Positive: Negative Neurological/Mental Status: Positive: Negative Psychological: Positive: Negative Physical Exam - Summary Physical Exam Summary: GENERAL: NAD. WDWN. No pain distress. SKIN: No rashes, sores, lesions, or open wounds. HEENT: Head: AT/NC Eyes: Conjunctiva clear without inflammation or discharge. Ears: Hearing grossly normal. TMs intact, no bulging, erythema, or edema. Nose: Nasal mucosa pink and moist. NTTP maxillary and frontal sinus. Throat: Posterior oropharynx without exudates, erythema, or tonsillar enlargement. Uvula midline. NECK: Supple. Nontender. No lymphadenopathy. CHEST: Mild wheezing throughout. No r/r. No accessory muscle use. Breathing comfortably and in no distress. CV: RRR. Pulses intact. Cap refill <2seconds NEURO: Alert. PSYCH: Age appropriate behavior. Triage Information Reviewed: Yes Vital Signs: Vital Signs: Temp Pulse Resp BP Pulse Ox 98.2 F 94 16 116/72 99 12/01/19 19:26 12/01/19 19:26 12/01/19 19:26 12/01/19 19:26 12/01/19 19:26 Laboratory Tests 12/01/19 19:50 Influenza A (Rapid) Negative Influenza B (Rapid) Negative Vital Signs Reviewed: Yes Respiratory Course/Dx - Course Course Of Treatment: POC flu negative. Given wheezing - rx for albuterol inhaler. Exam performed utilizing CDC recommended PPE. You are being tested for COVID-19. You need to quarantine yourself in a bedroom and bathroom only you are using. You may not leave the house. [facility] will contact you and notify of results when they are available. Advised to be on home isolation until cleared by the health department. Go to ED for increased SOB or any difficulty breathing - new or worsening symptoms. - Differential Dx/Diagnosis Provider Diagnosis: Cough Discharge ED - Sign-Out/Discharge Documenting (check all that apply): Patient Departure All imaging exams completed and their final reports reviewed: No Studies - Discharge Plan Condition: Stable Disposition: HOME Prescriptions: Albuterol HFA INHALER* [Ventolin HFA Inhaler*] 2 puff INH Q6H PRN #1 mdi PRN Reason: Sob/Wheezing Patient Education Materials: Viral Syndrome (ED) Forms: COVID-19 Tested & Isolation Referrals: No Primary Care Phys,NOPCP [Primary Care Provider] - Additional Instructions: You are being tested for COVID-19. You need to quarantine yourself in a bedroom and bathroom only you are using. You may not leave the house. [facility] will contact you and notify of results when they are available. Advised to be on home isolation until cleared by the health department. Go to ED for increased SOB or any difficulty breathing - new or worsening symptoms. - Billing Disposition and Condition Condition: STABLE Disposition: Home - Attestation Statements Provider Attestation: This patient was not seen by me. I was available for consult. Chart reviewed. KILLIAN
[2019-12-01 19:44] VITALS: BP 116/72
--- OUTSIDE RECORDS SUMMARY | 2019-12-01 19:55 | XMS REPORT | Continuity of Care Document ---
:1990 External Reference #:[id number] Author Name Nurses (transmitted by agent of provider Bee Warren) Problems Active Problems Provider Date Anxiety Onset: [...] Medications SIG Qnty Indications Ordering Date Provider Orilissa 1 by mouth every day 90tabs Teo Garcia 10/10/2019 150mg JR, DO Tablets Lupron Depot one vial 1units N80.0 Teo Garcia 10/10/2019 (1-Month) intramuscular every JR, DO 3.75mg month x 3 Kit Ibuprofen 1 by mouth four times 30tabs Z01.818 Derick Gresham 02/22/2019 600mg a day 2days prior to Liliane Watson Tablets period and 1st 2 days of period History Medications Lupron Depot one vial 1units N80.0 Derick Gresham 09/19/2019 - (1-Month) intramuscular every Will WatsonD. 10/10/2019 3.75mg month x 3 Kit Amoxicillin take one by mouth 21tabs Jessica 09/08/2019 - 500mg every 8 hours (Erin Webber CNM 09/15/2019 Tablets times/ day) for 1 week Medications Administered in Office Medication SIG Qnty [...] Vaccine Lot # U-Td Given 07/02/2010 Td(Adult),Unspecified 81578 Given 12/17/2007 Gardasil Vaccine For HPV Q2039 Given 06/14/2003 Influenza Vaccine Not Specified Administered Age 3 And Older 35140 Given 08/28/1999 Hepatitis B Vaccine Pediatric/Adolescent 35188 Given 03/27/1999 Hepatitis B Vaccine Pediatric/Adolescent 28752 Given 02/25/1999 Hepatitis B Vaccine Pediatric/Adolescent U-Polio Given 06/02/1996 Polio,Unspecified U-DTaP Given 06/02/1996 DTaP,Unspecified 57687 Given 06/02/1996 MMR Vaccine U-DTaP Given 02/14/1994 DTaP,Unspecified U-Polio Given 02/14/1994 Polio,Unspecified 80098 Given 09/05/1993 Hib Hboc Conjugate 4 Dose Schedule 84570 Given 08/15/1993 MMR Vaccine U-DTaP Given 1992 DTaP,Unspecified 45851 Given 1992 Hib Hboc Conjugate 4 Dose Schedule U-Polio Given 1992 Polio,Unspecified U-DTaP Given 1992 DTaP,Unspecified 83717 Given 1992 Hib Hboc Conjugate 4 Dose Schedule U-Polio Given 1992 Polio,Unspecified U-DTaP Given 1992 DTaP,Unspecified 46564 Given 1992 Hib Hboc Conjugate 4 Dose Schedule Vital Signs Date Vital Result Comment 10/10/2019 10:12am BP Systolic 122 mmHg BP Diastolic 74 mmHg Height 62 inches 5'2" Weight 155.00 lb BMI (Body Mass Index) 28.3 kg/m2 Last Menstrual Period 5756229 0 Parity 0 09/19/2019 8:11am BP Systolic 116 mmHg BP Diastolic 58 mmHg Height 62 inches 5'2" Weight 157.00 lb BMI (Body Mass Index) 28.7 kg/m2 Last Menstrual Period 7980263 0 Parity 0 Results Test Acquired Date Facility Test Result H/L Range Note Laboratory test 09/01/2019 [facility] Surgical SEE RESULT 1 [place] [address] Pathology BELOW [phone] Laboratory test 09/01/2019 [facility] Surgical SEE RESULT 2 [place] [address] Pathology BELOW [phone] 1 SEE RESULT BELOW Name: TAMICA JOHNSON : [address]: Derick Watson MD Acct: [id number] Unit: [id number] AGE: 29 Location: OR Re09/01/19 SEX: F Status[place] [facility] [place] SPEC: [id number] TIBURCIO: 09/01/19- [facility] DR: Derick Watson MD REQ: [id number] RECD: 09/01/19 STATUS: SOUT _ ORDERED: LEVEL [...] 1556 END OF REPORT DEPARTMENT OF PATHOLOGY, [address] [place] [address] Jc Flanagan M.D. Director [facility] # [id number] 2 SEE RESULT BELOW Name: TAMICA JOHNSON Patrica : [address]: Derick Watson MD Acct: [id number] Unit: [id number] AGE: 29 Location: OR Re09/01/19 SEX: F Status: [facility] [place] SPEC: [id number] TIBURCIO: 09/01/19- [facility] DR: Derick Watson MD REQ: [id number] RECD: 09/01/19 STATUS: SOUT _ ORDERED: LEVEL [...] desmin were performed with appropriate controls at [facility] and interpreted by [facility] pathology and are negative. Addendum Signed (signature on file) Jc Flanagan MD 1354 FINAL DIAGNOSIS Ovary, right, excision: -- Adenofibroma. CONTINUED ON NEXT PAGE DEPARTMENT OF PATHOLOGY, [address] [place] [address] Jc Flanagan M.D. Director [facility] # [id number] PRE-OPERATIVE DIAGNOSIS Endometriosis of ovary, pelvic, perineal [...] 1556 END OF REPORT DEPARTMENT OF PATHOLOGY, [address] [place] [address] Jc Flanagan M.D. Director [facility] # [id number] Procedures Date Code Description Status 10/28/2019 07027 Injection Intramuscular Or Subcutaneous Completed 09/01/2019 79750 Diagnostic Laparoscopy Completed Medical Devices Description No Information Available Encounters Type Date Location Provider Dx Diagnosis Office Visit 10/10/2019 [facility] Teo Garcia JR, R10.2 Pelvic and perineal 10:15a DO pain Office Visit 09/19/2019 [facility] Derick Watson, N80.0 Endometriosis of 8:20a M.D. uterus Office Visit 08/16/2019 [facility] Derick Watson, Z01.818 Encounter for other 3:20p M.D. preprocedural examination Office Visit 07/20/2019 [facility] Derick Watson, N80.1 Endometriosis of ovary 2:20p M.D. Assessments Date Code Description Provider 10/28/2019 N80.0 Endometriosis of uterus Mayur Giron MD 10/28/2019 N80.0 Endometriosis of uterus Nurses 10/10/2019 R10.2 Pelvic and perineal pain Teo Garcia JR, DO 09/19/2019 N80.0 Endometriosis of uterus Derick Watson [...]
--- OUTSIDE RECORDS SUMMARY | 2019-12-01 19:55 | XMS REPORT | Continuity of Care Document ---
:1990 External Reference #:[id number] Author Name Nurses (transmitted by agent of provider Ananya Moser) Problems Active Problems Provider Date Anxiety Onset: [...] Medications SIG Qnty Indications Ordering Date Provider Orilisimona 1 by mouth every day 90tabs Teo [...] Derick Gresham 09/19/2019 - (1-Month) intramuscular every Gelnory MAnaD. 10/10/2019 3.75mg month x 3 Kit Amoxicillin [...] Vaccine Lot # U-Td Given 07/02/2010 Td(Adult),Unspecified 97295 Given 12/17/2007 Gardasil Vaccine For HPV Q2039 Given 06/14/2003 Influenza Vaccine Not Specified Administered Age 3 And Older 69048 Given 08/28/1999 Hepatitis B Vaccine Pediatric/Adolescent 29731 Given 03/27/1999 Hepatitis B Vaccine Pediatric/Adolescent 44934 Given 02/25/1999 Hepatitis B Vaccine Pediatric/Adolescent U-Polio Given 06/02/1996 Polio,Unspecified U-DTaP Given 06/02/1996 DTaP,Unspecified 82799 Given 06/02/1996 MMR Vaccine U-DTaP Given 02/14/1994 DTaP,Unspecified U-Polio Given 02/14/1994 Polio,Unspecified 71754 Given 09/05/1993 Hib Hboc Conjugate 4 Dose Schedule 83885 Given 08/15/1993 MMR Vaccine U-DTaP Given 1992 DTaP,Unspecified 16032 Given 1992 Hib Hboc Conjugate 4 Dose Schedule U-Polio Given 1992 Polio,Unspecified U-DTaP Given 1992 DTaP,Unspecified 80099 Given 1992 Hib Hboc Conjugate 4 Dose Schedule U-Polio Given 1992 Polio,Unspecified U-DTaP Given 1992 DTaP,Unspecified 03560 Given 1992 Hib Hboc Conjugate 4 Dose Schedule Vital Signs Date Vital Result Comment 10/10/2019 10:12am BP Systolic 122 mmHg BP Diastolic 74 mmHg Height 62 inches 5'2" Weight 155.00 lb BMI (Body Mass Index) 28.3 kg/m2 Last Menstrual Period 9996283 0 Parity 0 09/19/2019 8:11am BP Systolic 116 mmHg BP Diastolic 58 mmHg Height 62 inches 5'2" Weight 157.00 lb BMI (Body Mass Index) 28.7 kg/m2 Last Menstrual Period 8245653 0 Parity 0 Results Test Acquired Date Facility Test Result H/L Range Note Laboratory test 09/01/2019 [facility] Surgical SEE RESULT [address] [place] [address] Pathology BELOW [phone] Laboratory test 09/01/2019 [facility] Surgical SEE RESULT [address] [place] [address] Pathology BELOW [phone] 1 SEE RESULT BELOW Name: STEPHANIE JOHNSON : [address]: Derick Watson MD Acct: [id number] Unit: [id number] AGE: 29 Location: [place] Re09/01/19 SEX: F [place] [facility] [place]: [id number] TIBURCIO: 09/01/19- [facility] DR: Derick Watson MD REQ: [id number] RECD: 09/01/19 STATUS: SOUT _ ORDERED: LEVEL [...] 1556 END OF REPORT DEPARTMENT OF PATHOLOGY, [address] [place] [address] Jc Flanagan M.D. Director [facility] # [id number] 2 SEE RESULT BELOW Name: STPEHANIE JOHNSON Patrica : [address]: Derick Watson MD Acct: [id number] Unit: [id number] AGE: 29 Location: OR Re09/01/19 SEX: F [place] [facility] [place]C: [id number] TIBURCIO: 09/01/19- [facility] DR: Derick Watson MD REQ: [id number] RECD: 09/01/19 STATUS: SOUT _ ORDERED: LEVEL [...] desmin were performed with appropriate controls at [facility] and interpreted by [facility] pathology and are negative. Addendum Signed (signature on file) Jc Flanagan MD 1354 FINAL DIAGNOSIS Ovary, right, excision: -- Adenofibroma. CONTINUED ON NEXT PAGE DEPARTMENT OF PATHOLOGY, [address] [place] [address] Jc Flanagan M.D. Director [facility] # [id number] PRE-OPERATIVE DIAGNOSIS Endometriosis of ovary, pelvic, perineal [...] 1556 END OF REPORT DEPARTMENT OF PATHOLOGY, [address] [place] [address] Jc Flanagan M.D. Director [facility] # [id number] Procedures Date Code Description Status 11/25/2019 19920 Injection Intramuscular Or Subcutaneous Completed 10/28/2019 04940 Injection Intramuscular Or Subcutaneous Completed 09/01/2019 23243 Diagnostic Laparoscopy Completed Medical Devices Description No Information Available Encounters Type Date Location Provider Dx Diagnosis Office Visit 10/10/2019 [facility] Teo Garcia JR, R10.2 Pelvic and perineal 10:15a DO pain Office Visit 09/19/2019 [facility] Derick Watson, N80.0 Endometriosis of 8:20a M.D. uterus Office Visit 08/16/2019 [facility] Derick Watson, Z01.818 Encounter for other 3:20p M.D. preprocedural examination Office Visit 07/20/2019 [facility] Derick Watson, N80.1 Endometriosis of ovary 2:20p M.D. Assessments Date Code Description Provider 11/25/2019 N80.0 Endometriosis of uterus Noemy Andrade MD 11/25/2019 N80.0 Endometriosis of uterus Nurses 10/28/2019 N80.0 Endometriosis of uterus Mayur Giron [...]
[2019-12-01 20:01] LABS: Influenza A Molecular Negative (Negative); Influenza B Molecular Negative (Negative)
== END 2019-12-01 20:17 | disposition home or self-care (01) ==
LOC: UCEAST 19:11
DX: R05 Cough (principal); R06.2 Wheezing; M79.10 Myalgia, unspecified site; R53.83 Other fatigue; Z88.0 Allergy status to penicillin; Z87.891 Personal history of nicotine dependence
CPT/HCPCS: 99212; G0463; U0002

== ENCOUNTER 2019-12-05 12:15 | Emergency (ER) | payer OTHER ==
--- NOTE | 2019-12-05 12:24 | ED ---
Complex/Multi-Sys Presentation - HPI Summary HPI Summary: Patient is a 29 y/o F presenting to the ED for a chief complaint of shortness of breath that began a few days ago. Currently, patient also reports fatigue, lightheadedness, decreased concentration, and decreased appetite. She also notes an episode of bilateral hand and feet numbness and paresthesia. A few days ago, patient had a fever, which she states has been intermittent. No aggravating or alleviating factors are reported. She was tested for COVID-19 at [facility] with negative findings. She was sent to [facility] by the [facility] as patient's symptoms have persisted since initial onset. PMHx is significant for insulin-resistant PCOS and endometriosis for which she had surgery a few months ago. - History Of Current Complaint Chief Complaint: EDShortnessOfBreath Hx Obtained From: Patient Onset/Duration: Sudden Onset, Lasting Days, Still Present Timing: Constant Severity Currently: Moderate Severity Initially: Moderate Aggravating Factor(s): Nothing Alleviating Factor(s): Nothing Associated Signs And Symptoms: Positive: SOB, Fever - In vitals, 98.3 F Related History: Recent Illness - Allergies/Home Medications Allergies/Adverse Reactions: Allergies Allergy/AdvReac Type Severity Reaction Status Date / Time amoxicillin Allergy GI Upset Verified 12/01/19 19:44 Home Medications: Home Medications Albuterol HFA INHALER* [Ventolin HFA Inhaler*] 2 puff INH Q6H PRN #1 mdi [Rx Confirmed 12/05/19] Leuprolide 11.25 MG KIT [Lupron Depot*] 11.25 mg IM MONTHLY 12/01/19 [History Confirmed 12/05/19] Multivitamins/Minerals TAB* [Theragran/minerals TAB*] 1 tab PO DAILY 12/05/19 [ History Confirmed 12/05/19] PMH/Surg Hx/FS Hx/Imm Hx Previously Healthy: Yes Endocrine/Hematology History: Denies: Hx Diabetes - possible borderline, Hx Thyroid Disease Cardiovascular History: Denies: Hx Congestive Heart Failure, Hx Hypertension Respiratory History: Reports: Hx Asthma - On meds, Other Respiratory Problems/ Disorders - smoker vapes Denies: Hx Chronic Obstructive Pulmonary Disease (COPD) GI History: Denies: Hx Ulcer History: Reports: Hx Kidney Infection - 1 year ago- none recently Denies: Hx Dialysis, Hx Kidney Stones, Hx Renal Disease Sensory History: Denies: Hx Contacts or Glasses, Hx Legally Blind, Hx Deafness, Hx Hearing Aid Opthamlomology History: Denies: Hx Contacts or Glasses, Hx Legally Blind EENT History: Denies: Hx Deafness Neurological History: Reports: Hx Migraine - occassional Psychiatric History: Reports: Hx Anxiety, Hx Depression - Cancer History Hx Chemotherapy: No - Surgical History Surgical History: Yes Surgery Procedure, Year, and Place: wisdom teeth, endometriosis surgery Hx Anesthesia Reactions: No - Immunization History Date of Tetanus Vaccine: UTD Date of Influenza Vaccine: NONE Infectious Disease History: No Infectious Disease History: Denies: Hx Clostridium Difficile, Hx Hepatitis, Hx Human Immunodeficiency Virus (HIV), Hx of Known/Suspected MRSA, Hx Shingles, Hx Tuberculosis - Family History Known Family History: Positive: Hypertension, Other Family History: breast cancer, lung cancer - Social History Occupation: Employed Full-time Alcohol Use: Rare Hx Substance Use: Yes Substance Use Type: Reports: Marijuana Substance Use Comment - Amount & Last Used: regularly, for pain Hx Tobacco Use: Yes Smoking Status (MU): Former Smoker Amount Used/How Often: 3/4 ppd- vapes now Length of Time of Smoking/Using Tobacco: 10 years Have You Smoked in the Last Year: Yes Review of Systems Positive: Fever - In vitals, 98.3 F, Fatigue, Other - Positive decreased appetite Positive: Shortness Of Breath Neurological/Mental Status: Other - Positive lightheadedness Positive: Paresthesia - Bilateral hands and feet, Numbness - Bilateral hands and feet Psychological: Other - Positive decreased concentration All Other Systems Reviewed And Are Negative: Yes Physical Exam - Summary Physical Exam Summary: Constitutional: Well-developed, Well-nourished, Alert. (-) Distressed Skin: Warm, Dry HENT: Normocephalic; Atraumatic Eyes: Conjunctiva normal Neck: Musculoskeletal ROM normal neck. (-) JVD, (-) Stridor, (-) Nuchal rigidity Cardio: Rhythm regular, rate normal, Heart sounds normal; Intact distal pulses; Radial pulses are 2+ and symmetric. (-) Murmur Pulmonary/Chest wall: Effort normal. (-) Respiratory distress, (-) Wheezes, (-) Rales Abd: Soft, (-) tenderness, (-) Distension, (-) Guarding, (-) Rebound Musculoskeletal: (-) Edema Lymph: (-) Cervical adenopathy Neuro: Alert, Oriented x3 Psych: Mood and affect Normal Triage Information Reviewed: Yes Vital Signs Reviewed: Yes Procedures - Sedation Patient Received Moderate/Deep Sedation with Procedure: No Diagnostics - Laboratory Result Diagrams: 12/05/19 12:40 12/05/19 12:40 Lab Statement: Any lab studies that have been ordered have been reviewed, and results considered in the medical decision making process. - Radiology Chest X-ray Radiology Interpretation Completed By: Radiologist Summary of Radiographic Findings: Chest X-ray IMPRESSION: NO ACTIVE CARDIOPULMONARY DISEASE. Reviewed by Dr. Acevedo. Re-Evaluation - Re-Evaluation Second Eval Re-Evaluation Time: 13:45 Change: Improved - d/w patient results return precautions Complex Multi-Symp Course/Dx Course Of Treatment: 29 y/o F p/w SOB, cough and fatigue. - VSS NAD. Lungs CTAB. CXR negative for PNA- 2+ radial pulses, hands well perfused. Patient presenting with flu like illness. VS here stable, well appearing. Tolerating PO. Lungs CTAB, easy WOB.. No neck pain/nuchal rigidity, headache or other signs of meningismus. Encouraged to take motrin/tylenol PRN, increased PO intake of fluids and return for worsening symptoms. - Diagnoses Provider Diagnoses: Shortness of breath, URI (upper respiratory infection) Discharge ED - Sign-Out/Discharge Documenting (check all that apply): Patient Departure - Discharge - Discharge Plan Condition: Stable Disposition: HOME Patient Education Materials: Upper Respiratory Infection (ED) Referrals: [facility] [Outside] Additional Instructions: You were seen in the emergency department for cough and shortness of breath. Your x-ray did not show pneumonia. Your lab work was unremarkable. Please drink lots of fluids while you're home. You can take Motrin or Tylenol for pain or fever. If any studies were not completed at the time of discharge you will be called with the relevant results. Please follow up with your primary care doctor in next 2-3 days and return to emergency department for chest pain, trouble breathing, worsening or concerning symptoms. It was a pleasure taking care of you today. - Billing Disposition and Condition Condition: STABLE Disposition: Home - Attestation Statements Document Initiated by Scribe: Yes Documenting Scribe: Tory Edward Provider For Whom Scribe is Documenting (Include Credential): Gabbie Acevedo MD Scribe Attestation: ITory, scribed for Gabbie Acevedo MD on 12/05/19 at 1353. Scribe Documentation Reviewed: Yes Provider Attestation: The documentation as recorded by the ferozibeTory accurately reflects the service I personally performed and the decisions made by me, Gabbie Acevedo MD Status of Scribe Document: Viewed
[2019-12-05 12:49] LABS: ABS Lymphocytes 2.1 10^3/ul (1.0-4.8); ABS Monocytes 0.3 10^3/ul (0-0.8); ABS Neutrophils 3.9 10^3/ul (1.5-7.7); Eosinophil % 0.5 %; Hematocrit 44 % (35-47); Hemoglobin 15.1 g/dL (12.0-16.0); Lymphocyte % 32.1 %; Mean Corpuscular HGB Conc 35 g/dL (31-36); Mean Corpuscular Hemoglobin 29 pg (27-31); Mean Corpuscular Volume 83 fL (80-97); Mean Platelet Volume 8.7 fL (7.4-10.4); Platelet Count 240 10^3/uL (150-450); Red Blood Count 5.24 10^6 /uL (3.70-4.87); Red Cell Distribution Width 13 % (10-15); White Blood Count 6.4 10^3/uL (3.5-10.8)
[2019-12-05 13:06] LABS: ALT 11 U/L (7-52); AST 14 U/L (13-39); Albumin 4.6 g/dL (3.2-5.2); Alkaline Phosphatase 60 U/L (34-104); Anion Gap 7 mmol/L (2-11); BUN/Creatinine Ratio 14.3 (8-20); Blood Urea Nitrogen 10 mg/dL (6-24); CO2 Carbon Dioxide 27 mmol/L (22-32); Calcium 9.7 mg/dL (8.6-10.3); Chloride 104 mmol/L (101-111); EGFR African American 121.5 (>60); EGFR Non-African American 100.4 (>60); Globulin 2.3 g/dL (2-4); Glucose 106 mg/dL (70-100); Potassium 3.5 mmol/L (3.5-5.0); Sodium 138 mmol/L (135-145); Total Protein 6.9 g/dL (6.4-8.9)
[2019-12-05 13:13] LABS: HCG Pregnancy < 0.60 mIU/mL
[2019-12-05 15:47] VITALS: BP 127/73
== END 2019-12-05 15:46 | disposition home or self-care (01) ==
LOC: ED 12:15
DX: J06.9 Acute upper respiratory infection, unspecified (principal); J45.909 Unspecified asthma, uncomplicated; F41.9 Anxiety disorder, unspecified; F32.9 Major depressive disorder, single episode, unspecified; Z87.891 Personal history of nicotine dependence; Z79.899 Other long term (current) drug therapy; Z88.0 Allergy status to penicillin
CPT/HCPCS: 36415; 71046; 80053; 84702; 85025; 99283